=== PATIENT | male | born 1955 | race African-American/Black ===

== ENCOUNTER 2022-02-05 10:28 | Outpatient (REF) | payer MEDICARE, OTHER, SELFPAY ==
[2022-02-05 11:11] LABS: MANUAL DIFF FLAG NO
[2022-02-05 11:26] LABS: Basophils Absolute Auto 0.1 X10*3/uL (0.0-0.2); Basophils Percent Auto 1.1 % (0-2); Eosinophils Absolute Auto 0.3 X10*3/uL (0.0-0.4); Eosinophils Percent Auto 5.5 % (0-4); Hematocrit 38.5 % (42.0-52.0); Hemoglobin 12.3 g/dl (14.0-18.0); Imm Gran Abs Auto 0.01 X10*3/uL (0.00-0.03); Imm Gran Pct Auto 0.2 % (0.0-0.4); Lymphocytes Absolute Auto 1.3 X10*3/uL (1.2-4.9); Lymphocytes Percent Auto 28.3 % (20-40); Mean Corpuscular HGB Conc 31.9 g/dl (31.0-36.0); Mean Corpuscular Hemoglobin 23.3 pg (27.0-33.0); Mean Corpuscular Volume 73.1 fL (80.0-98.0); Mean Platelet Volume 11.4 fL (9.4-12.4); Monocytes Absolute Auto 0.6 X10*3/uL (0.1-1.2); Monocytes Percent Auto 12.5 % (2-11); Neutrophils Absolute Auto 2.5 x10*3/uL (2.0-8.3); Neutrophils Percent Auto 52.4 % (45-73); Platelet Count 234 X10*3/uL (160-400); Red Blood Count 5.27 X10*6/uL (4.60-5.80); White Blood Count 4.7 X10*3/uL (4.8-10.8)
[2022-02-05 12:38] LABS: Alanine Aminotransferase 40 U/L (0-40); Alkaline Phosphatase 94 U/L (39-117); Anion Gap 12 (12-20); Aspartate Amino Transferase 38 U/L (5-37); Bilirubin Total 0.9 mg/dL (0.0-1.0); Blood Urea Nitrogen 16 mg/dL (9-16); Calcium 9.5 mg/dL (8.4-10.2); Carbon Dioxide 27 mmol/L (22-29); Chloride 105 mmol/L (96-108); Cholesterol 207 mg/dL; Estimated Glomerular Filt Rate > 60; Glucose Fasting 80 mg/dL (60-99); HDL Cholesterol 58 mg/dL; LDL Cholesterol Calculated 114 mg/dl; Potassium 4.2 mmol/L (3.3-5.1); Sodium 140 mmol/L (135-145); Total Protein 7.4 g/dL (6.5-8.0); Triglycerides 178 mg/dL; Vitamin D 25-OH Total 16.3 ng/mL (>30)
[2022-02-05 13:57] LABS: Appearance Urine Clear; Color Urine Yellow; Glucose Urine UA Negative (Negative); Leukocyte Esterase Urine Small (1+) (Negative); Nitrite Urine Positive (Negative); PH 5.5 (5.0-9.0); Specific Gravity - Urine 1.015 (1.005-1.025); UMIC TRIGGER UACC YES; Urine Blood Negative (Negative); Urine Ketones Negative (Negative); Urine Protein Negative (Neg-Trace)
[2022-02-05 14:02] LABS: Bacteria Urine 4+ (None Seen); Hyaline Casts Urine 0-2 /LPF (0-2); RBC Urine 0-2 /HPF (0-2); Squamous Epithelial Cell Urine 0-2 /HPF (0-2); UACC Culture Trigger YES; WBC Urine 21-50 /HPF (0-5)
== END 2022-02-05 10:29 | disposition home or self-care (01) ==
LOC: HO.HMGCLDS 10:28
PROVIDERS: PCP Internal Medicine; Visit Provider Internal Medicine
DX: I10 Essential (primary) hypertension (principal); E78.00 Pure hypercholesterolemia, unspecified; E55.9 Vitamin D deficiency, unspecified
CPT/HCPCS: 36415; 80053; 80061; 81001; 82306; 84443; 85025; 87086; 87088; 87186

== ENCOUNTER 2022-02-07 12:14 | Outpatient (REF) | payer MEDICARE, OTHER, SELFPAY ==
[2022-02-07 15:04] LABS: PSA,Total (Free>4and<10) 11.71 ng/mL (0.00-4.00)
== END 2022-02-07 12:15 | disposition home or self-care (01) ==
LOC: HO.LAB 12:14
PROVIDERS: PCP Internal Medicine; Visit Provider Nurse Practitioner Family
DX: Z12.5 Encounter for screening for malignant neoplasm of prostate (principal)
CPT/HCPCS: 36415; 84153

== ENCOUNTER → 2022-03-13 13:04 | Outpatient (BNVA) | payer MEDICARE, OTHER, SELFPAY | PROVIDERS: PCP Internal Medicine; Visit Provider Urology | DX: N40.1 Benign prostatic hyperplasia with lower urinary tract symptoms (principal); N13.8 Other obstructive and reflux uropathy; R97.20 Elevated prostate specific antigen [PSA]; R35.0 Frequency of micturition; I10 Essential (primary) hypertension; E78.00 Pure hypercholesterolemia, unspecified; E55.9 Vitamin D deficiency, unspecified | CPT/HCPCS: 99202 ==

== ENCOUNTER 2022-09-01 09:06 | Outpatient (AMB) | payer MEDICARE, OTHER, SELFPAY ==
[2022-09-01 09:14] VITALS: BP 122/80; PULSE 82; O2SAT 96; BMI 23.1
--- NOTE | 2022-09-01 09:14 | A.OFFPC_ITS ---
Vital Signs 09/01/22 09:14 Height 5 ft 11 in Weight 165 lb 6 oz BMI 23.1 BP 122/80 Blood Pressure Location Lt brachial Position Sitting Pulse 82 Pulse Source Pulse Oximeter Pulse Oximetry (%) 96 Oxygen Delivery Method Room Air Intake Visit Reasons: 6M follow up Refractory Repairer Required: No Accompanied by: Self / Same As Patient Allergies No Known Allergies Allergy (Verified 09/01/22 09:50) Medication List - Last Reconciled 09/01/22 by Teddy Aguila MD No Known Home Meds Tobacco use date assessed: 09/01/22 Fall risk assessment: No Falls in past year Last assessed Fall Risk: 09/01/22 Dental Screening Dental Screen Date: 09/01/22 Did you have a dental visit in the last 12 months?: No Did you have a dental problem in the last 6 months where you did not have access to dental care?: No Was dental information given to patient?: No HPI 6M follow up HPI Details Patient comes in today for his follow up visit States that he feels okay Still has on and off left knee pain and currently has a knee brace on his left knee, which he states help but he thinks this is more psychological than physical Has been following up with [facility] for his left knee OA and gets a cortisone injection into his knee every 3 to 4 months; has been advised that it is only a matter of time before he will require knee surgery Patient used to take Atorvastatin 20 mg QD as well as Vitamin D supplements and Doxazosin and Finasteride for his BPH but states that he has not been taking them for a while now Stopped taking his prostate Rx a few months ago as he states that Dr. Chu's office was supposed to call him back and schedule him for a prostate Bx but he never received any calls from them; would like to be referred instead to Urology in [facility] for his prostate issues as his is a patient over there as well Adds that he stopped taking his Atorvastatin a couple of years ago and he was not on his Rx when he last had his cholesterol levels checked back in January He denies any headaches or dizziness Denies any chest pains, no SOB No nausea/vomiting, no abdominal pain No change in bowel habits noted Has no follow up labs done recently [facility], [facility] Medical History Benign essential hypertension Benign prostatic hyperplasia with lower urinary tract symptoms Elevated PSA, between 10 and less than 20 ng/ml Pure hypercholesterolemia Vitamin D deficiency Surgical History History of hernia repair (~2002) Family History Sister Diabetes mellitus Social History Housing: House Alcohol intake: current e-Cigarette/Vaping Use: Never Used service: Yes Current occupational status: retired Cognitive needs: No Hearing needs: No Vision needs: No Questionnaire PHQ-9 Over the last 2 weeks, how often have you been bothered by any of the following problems? 1. Little interest or pleasure in doing things: not at all 2. Feeling down, depressed, or hopeless: not at all 3. Trouble falling or staying asleep, or sleeping too much: not at all 4. Feeling tired or having little energy: not at all 5. Poor appetite or overeating: not at all 6. Feeling bad about yourself - or that you are a failure or have let yourself or your family down: not at all 7. Trouble concentrating on things, such as reading the newspaper or watching television: not at all 8. Moving or speaking so slowly that other people could have noticed. Or the opposite - being so fidgety or restless that you have been moving around a lot more than usual: not at all 9. Thoughts that you would be better off or of hurting yourself in some way: not at all Total score: 0 Depression Screening Interpretation: Negative 23385 - PHQ-9 Billing: Yes Source: Developed by Drs. Eulogio Barros, Zelda Zavala, Macario Villeda and colleagues, with an educational valorie from [employer]. Thrive Questionnaire Date Thrive assessed: 09/01/22 I am a: Patient What is your living situation today?: I have a steady place to live Within the past 12 months, did the food you bought not last and you didn't have the money to get more?: Never true Within the past 12 months, did you worry whether your food would run out before you got money to buy more?: Never true Do you have trouble paying for medicines?: No Do you have trouble getting transportation to medical appointments?: No Do you have trouble paying your heating and electricity bill?: No Do you have trouble taking care of your child, family member or friend?: No Do you have trouble with day-to-day activities such as bathing, preparing meals, shopping, managing finances, etc.?: No Are you currently unemployed and looking for a job?: No Are you interested in more education?: No Please select the resources that you would like help with: None Currently or been in a relationship where the following occur: no concerns reported AUDIT C Alcohol Use Questionnaire (AUDIT-C) 1. How often do you have a drink containing alcohol?: 4 or more times a week 2. How many drinks containing alcohol do you have on a typical day when you are drinking?: 10 or more Total Score: 8 Score Reviewed/Action Taken: Yes EVENS-7 AMB Questionnaire EVENS-7 Date EVENS - 7 assessed: 09/01/22 Feeling nervous, anxious, or on edge: 0 = Not at all Not being able to stop or control worryin = Not at all Worrying too much about different things: 0 = Not at all Trouble relaxin = Not at all Being so restless that it is hard to sit still: 0 = Not at all Becoming easily annoyed or irritable: 0 = Not at all Feeling afraid as if something awful might happen: 0 = Not at all Total EVENS-7 score (0-4 normal; 5-9 mild; 10-14 moderate; 15-21 severe): 0 Source: Developed by Drs. Eulogio Barros, Zelda Zavala, Macario Villeda and colleagues, with an educational valorie from [employer]. Review of Systems Const Denies chills, Denies fatigue, Denies fever(s) and Denies headache(s) ENT Denies dysphagia, Denies dizziness, Denies otalgia, Denies headache(s), Denies odynophagia and Denies sore throat Card Denies chest pain, Denies palpitations and Denies dyspnea Resp Denies cough and Denies dyspnea GI Denies abdominal pain, Denies constipation, Denies dysphagia, Denies heartburn, Denies diarrhea, Denies nausea, Denies odynophagia and Denies vomiting Denies dysuria, Reports nocturia and Denies urinary frequency Musc Reports arthralgias (recurrent, over the left knee) Neuro Denies dizziness and Denies headache(s) Endo Denies fatigue and Denies palpitations Physical exam (Primary Care) Vital Signs: Last Vital Signs Pulse 82 09/01/22 09:14 BP 122/80 09/01/22 09:14 Pulse Ox 96 09/01/22 09:14 Oxygen Delivery Method Room Air 09/01/22 09:14 BMI result Body Mass Index 23.1 Tobacco/Smoking Status: Tobacco use Status Tobacco use date assessed 09/01/22 09/01/22 09:19 e-Cigarette/Vaping Use Never Used 09/01/22 09:19 PHQ-9: PHQ-9 Score PHQ-9: Total score 0 09/01/22 09:19 Depression Screening Interpretation: Negative Thrive Assessment: Date of Thrive Assessment Date Thrive assessed 09/01/22 09/01/22 09:19 Currently or been in a relationship where the following occur: no concerns reported Const General: no acute distress and alert HENMT Ears: TM's normal bilaterally and EAC's normal Throat: Yes posterior oropharynx normal and Yes tonsils normal (no TP congestion) Neck Neck: Yes no lymphadenopathy and Yes supple Resp Auscultation: clear to auscultation bilaterally, no rales and no wheezes Cardio Rate: regular rate Rhythm: regular rhythm Heart sounds: no murmurs GI Palpation (GI): Soft to palpation, nontender and No hepatosplenomegaly present Skin General skin exam: no rashes or lesions noted Extrem General: Yes no clubbing, cyanosis or edema Left lower extremity: knee (has a brace on the left knee at present) Details: tenderness (mild) and crepitus Assessment and Plan Assessment & Plan (1) Chronic anemia: Code(s): D64.9 - Anemia, unspecified Plan: ?Hx of thalassemia trait Patient has consistently presented with mild microcytic hypochromic anemia on his CBCs done over the past few years - numbers are suggestive of a thalassemia trait Will check Hgb electrophoresis with his labs in 6 months for further evaluation/confirmation Will also include a vitamin B12 level for further evaluation due to his frequent alcohol use (2) Pure hypercholesterolemia: Code(s): E78.00 - Pure hypercholesterolemia, unspecified Plan: Reinforced low cholesterol diet Was on Atorvastatin 20 mg QD in the past but states that he has not been taking his Rx for over 2 years now His fasting lipid profile last check in January 2022 were within acceptable ranges - he was NOT on Rx for cholesterol at the time Will recheck his labs and fasting lipids in 6 months for follow up (3) Benign essential hypertension: Code(s): I10 - Essential (primary) hypertension Plan: Reinforced low sodium diet Used to take HCTZ 25 mg QD in the past but self-discontinued this a few years ago BP has been well-controlled so far on no meds for the past couple of years Will continue to monitor his BP regularly for now (4) Benign prostatic hyperplasia with lower urinary tract symptoms: Code(s): N40.1 - Benign prostatic hyperplasia with lower urinary tract symptoms Qualifiers: Lower urinary tract symptom detail: urinary frequency Qualified Code(s): N40.1 - Benign prostatic hyperplasia with lower urinary tract symptoms; R35.0 - Frequency of micturition Plan: Used to see Dr. Chu and was started on Doxazosin and Finasteride and advised that he will be contacted for prostate Bx but states that he never received any call back Self-discontinued his Rx a few months ago when his Rx ran out - did not refill them as he was never contacted back Is requesting for a referral to urology in [place] instead as his goes there as a patient - referral done (5) Vitamin D deficiency: Code(s): E55.9 - Vitamin D deficiency, unspecified Plan: Used to take Vitamin D supplements but stopped taking them a while ago Will recheck his Vitamin D level in 6 months for follow up (6) Primary osteoarthritis of left knee: Code(s): M17.12 - Unilateral primary osteoarthritis, left knee Plan: Follow up with [facility] as scheduled; gets cortisone injections into his knee every 3 to 4 months as needed (7) Alcohol use: Code(s): Z78.9 - Other specified health status Plan: Have counseled patient on his alcohol use and recommended to cut back on his drinking Plan Follow up in 6 months Orders: Orders Comprehensive [place]. Panel Fast 6 Months E78.00 - Pure hypercholesterolemia, unspecified Lipid Panel 6 Months E78.00 - Pure hypercholesterolemia, unspecified TSH reflex Free T4 6 Months E78.00 - Pure hypercholesterolemia, unspecified Vitamin D 25-OH Total 6 Months E55.9 - Vitamin D deficiency, unspecified Complete Blood Count Auto Diff 6 Months I10 - Essential (primary) hypertension Hemoglobin Electrophoresis 6 Months D64.9 - Anemia, unspecified UA CC w/rflx Micro + Cult 6 Months R30.0 - Dysuria Vitamin B12 and Folate 6 Months E53.8 - Deficiency of other specified B group vitamins Magnesium 6 Months E83.42 - Hypomagnesemia Referrals Urology Referral R97.20 - Elevated prostate specific antigen [PSA] Coding Level of Care Code Est Pt Level 4 (85068) Diagnoses Chronic anemia D64.9 Pure hypercholesterolemia E78.00 Benign essential hypertension I10 Benign prostatic hyperplasia with lower urinary tract symptoms N40.1; R35.0 Lower urinary tract symptom detail: urinary frequency Vitamin D deficiency E55.9 Primary osteoarthritis of left knee M17.12 Alcohol use Z78.9
== END 2022-09-01 09:51 | disposition home or self-care (01) ==
PROVIDERS: PCP Internal Medicine; Visit Provider Internal Medicine
DX: D64.9 Anemia, unspecified (principal); I10 Essential (primary) hypertension; E55.9 Vitamin D deficiency, unspecified; E78.00 Pure hypercholesterolemia, unspecified; R35.0 Frequency of micturition; N40.1 Benign prostatic hyperplasia with lower urinary tract symptoms; M17.12 Unilateral primary osteoarthritis, left knee; Z78.9 Other specified health status
CPT/HCPCS: 99214

== ENCOUNTER 2023-03-19 08:16 | Outpatient (REF) | payer MEDICARE, OTHER, SELFPAY ==
[2023-03-19 08:45] LABS: MANUAL DIFF FLAG NO
[2023-03-19 09:09] LABS: Basophils Absolute Auto 0.1 X10*3/uL (0.0-0.2); Basophils Percent Auto 1.4 % (0-2); Eosinophils Absolute Auto 0.3 X10*3/uL (0.0-0.4); Eosinophils Percent Auto 8.1 % (0-4); Hematocrit 37.7 % (42.0-52.0); Hemoglobin 12.1 g/dl (14.0-18.0); Lymphocytes Percent Auto 28.8 % (20-40); Mean Corpuscular HGB Conc 32.1 g/dl (31.0-36.0); Mean Corpuscular Volume 71.5 fL (80.0-98.0); Mean Platelet Volume 10.9 fL (9.4-12.4); Monocytes Absolute Auto 0.5 X10*3/uL (0.1-1.2); Monocytes Percent Auto 14.2 % (2-11); Neutrophils Absolute Auto 1.7 x10*3/uL (2.0-8.3); Neutrophils Percent Auto 47.5 % (45-73); Platelet Count 178 X10*3/uL (160-400); Red Blood Count 5.27 X10*6/uL (4.60-5.80); Red Cell Distribution Width 16.1 % (11.0-16.0); White Blood Count 3.6 X10*3/uL (4.8-10.8)
[2023-03-19 09:47] LABS: Alanine Aminotransferase 23 U/L (0-40); Albumin Level 3.6 g/dL (3.5-5.0); Alkaline Phosphatase 89 U/L (39-117); Anion Gap 14 (12-20); Aspartate Amino Transferase 30 U/L (5-37); Bilirubin Total 0.7 mg/dL (0.0-1.0); Blood Urea Nitrogen 17 mg/dL (9-16); Calcium 9.3 mg/dL (8.4-10.2); Carbon Dioxide 24 mmol/L (22-29); Chloride 104 mmol/L (96-108); Cholesterol 251 mg/dL (<200); Estimated Glomerular Filt Rate > 60; Glucose Fasting 81 mg/dL (60-99); HDL Cholesterol 44 mg/dL (>40); Magnesium 2.1 mg/dL (1.6-2.6); Potassium 3.9 mmol/L (3.3-5.1); Sodium 138 mmol/L (135-145); Total Protein 7.2 g/dL (6.5-8.0); Triglycerides 558 mg/dL (<150)
[2023-03-19 10:06] LABS: TSH reflex Free T4 1.19 uIU/mL (0.32-4.0); Vitamin D 25-OH Total 12.9 ng/mL (>30)
[2023-03-19 10:08] LABS: Folate 14.6 ng/mL (> or = 4.0); Vitamin B12 438 pg/mL (200-900)
[2023-03-19 10:55] LABS: Appearance Urine Cloudy; Color Urine Yellow; Glucose Urine UA Negative (Negative); Leukocyte Esterase Urine Moderate (2+) (Negative); Nitrite Urine Positive (Negative); PH 5.5 (5.0-9.0); Specific Gravity - Urine 1.015 (1.005-1.025); UMIC TRIGGER UACC YES; Urine Blood Negative (Negative); Urine Ketones Negative (Negative); Urine Protein Negative (Neg-Trace)
[2023-03-19 10:58] LABS: Bacteria Urine 4+ (None Seen); Hyaline Casts Urine 0-2 /LPF (0-2); RBC Urine 0-2 /HPF (0-2); Squamous Epithelial Cell Urine 0-2 /HPF (0-2); UACC Culture Trigger YES; WBC Urine >50 /HPF (0-5)
[2023-03-20 13:34] LABS: Hematocrit 38.7 % (38.5-50.0); Hemoglobin 12.1 g/dL (13.2-17.1); MCH 22.9 pg (27.0-33.0); MCV 73.3 fL (80.0-100.0); RBC 5.28 Million/uL (4.20-5.80); RDW 15.7 % (11.0-15.0)
== END 2023-03-19 08:17 | disposition home or self-care (01) ==
LOC: HO.LAB 08:16
PROVIDERS: PCP Internal Medicine; Visit Provider Internal Medicine
DX: D64.9 Anemia, unspecified (principal); I10 Essential (primary) hypertension; E78.00 Pure hypercholesterolemia, unspecified; E83.42 Hypomagnesemia; E53.8 Deficiency of other specified B group vitamins; E55.9 Vitamin D deficiency, unspecified
CPT/HCPCS: 36415; 80053; 80061; 81001; 82306; 82607; 82746; 83020; 83735; 84443; 85014; 85018; 85025; 85041; 87086; 87088; 87186

== ENCOUNTER 2023-03-20 12:22 | Outpatient (AMB) | payer MEDICARE, OTHER, SELFPAY ==
[2023-03-20 12:34] VITALS: BP 112/74; PULSE 101; O2SAT 97; BMI 23.2
--- NOTE | 2023-03-20 12:34 | AM.OFFVISMDC ---
Intake Vital Signs 03/20/23 12:34 Height 5 ft 11 in Weight 166 lb 8 oz BMI 23.2 BP 112/74 Blood Pressure Location Lt brachial Position Sitting Pulse 101 H Pulse Source Pulse Oximeter Pulse Oximetry (%) 97 Oxygen Delivery Method Room Air Intake Visit Reasons: SAWV Bottom Sprayer Required: No Accompanied by: Self / Same As Patient Allergies No Known Allergies Allergy (Verified 03/20/23 12:59) Medication List - Last Reconciled 03/20/23 by Teddy Aguila MD doxazosin 12 mg (3 x 4 mg) PO BEDTIME 90 days HPI SAWV HPI Details Patient comes in today for his Annual Medicare Wellness Exam AND follow up visit States that he feels okay He denies any headaches or dizziness Denies any chest pains, no SOB No nausea/vomiting, no abdominal pain No change in bowel habits noted Had his follow up labs done yesterday - to discuss his results IPPE/AWV: c/o of Annual Wellness Visit, subsequent visit. Medical / Social History Reviewed Past Medical History Yes . [place] of Care / Care Team list updated Yes . Surgical/Hospitalization History Yes . Current Medications (including OTC and supplements) Yes . Family History Yes . Tobacco Control form Yes . AUDIT-C (Alcohol use) form Yes . Illicit drug use in Social History Yes . Current diagnosis of depression? No Appropriate PHQ2/PHQ9 completed Yes . Data entered by [employer] Super[employer] and reviewed by provider Home Safety Throw rugs? No Grab bars? No Raised toilet seats? No Working smoke detectors? Yes Working carbon monoxide detectors? Yes Data entered by [employer] and reviewed by provider Activities of Daily Living (ADLs) Difficulty bathing or showering? No Difficulty dressing? No Difficulty using the toilet? No Difficulty getting in and out of bed? No Difficulty walking? No Receives help from another person with any of the above tasks? No Instrumental Activities of Daily Living (IADLs) Uses the telephone without help Gets to places out of walking distance without help Goes shopping for groceries without help Prepares own meals without help Does own minor home maintenance without help Does own laundry without help Does own housework without help Manages own money without help Currently takes medications? Yes Takes medication without help End-of-Life Planning Discussed advance directive Yes Advance directive on file Discussed wishes expressed in advance directive agreed to following patient's wishes Fall Risk: Fall History Have you had any falls with injury in the past year? No . Have you had two or more falls in the past year? No . Fall Risk Assessment: No falls in the past year . HRA filled out by the patient, reviewed by Provider and scanned. [facility] Medical History (Updated 03/20/23 @ 13:26 by Teddy Aguila MD) Mixed hyperlipidemia Elevated PSA, between 10 and less than 20 ng/ml Vitamin D deficiency Benign prostatic hyperplasia with lower urinary tract symptoms Pure hypercholesterolemia Benign essential hypertension Surgical History (Updated 03/20/23 @ 13:29 by Teddy Aguila MD) Hx of colonoscopy History of hernia repair (~2002) Family History Sister Diabetes mellitus Social History Housing: House Alcohol intake: current e-Cigarette/Vaping Use: Never Used service: Yes Current occupational status: retired Cognitive needs: No Hearing needs: No Vision needs: No Questionnaire Medicare Wellness Checkup [age] What gender do you identify with?: male During the past 4 weeks, how much have you been bothered by emotional problems such as feeling anxious, depressed, irritable, sad or downhearted, and blue?: not at all During the past 4 weeks, has your physical & emotional health limited your social activities with family, friends, neighbors, or groups?: not at all During the past 4 weeks, how much bodily pain have you generally had?: no pain During the past 4 weeks, was someone available to help you if you needed & wanted help?: yes, as much as I wanted During the past 4 weeks, what was the hardest physical activity you could do for at least 2 minutes?: heavy Can you get to places out of walking distance without help? (For eg., can you travel alone on buses, taxis or drive your car?): Yes Can you go shopping for groceries or clothes without someone's help?: Yes Can you prepare your own meals?: Yes Can you do your housework without help?: Yes Because of any health problems, do you need the help of another person with your personal care needs such as eating, bathing, dressing or getting around the house?: No Can you handle your own money without help?: Yes During the past 4 weeks, how would you rate your health in general?: very good During the past 4 weeks how have things been going for you?: very well; could hardly better Are you having difficulties driving your car?: no Do you always fasten your seat belt when you are in a car?: yes, usually During past 4 weeks, have you been bothered by the following: never: Falling or dizzy when standing up, Sexual problems?, Trouble eating well?, Teeth or denture problems?, Problems using the telephone? and Tiredness or fatigue? Have you fallen 2 or more times in the past year?: No Are you afraid of falling?: No Are you a smoker?: no During the past 4 weeks, how many drinks of wine, beer, or other alcoholic beverages did you have?: 10 or more per week Do you exercise for about 20 minutes 3 or more times a week?: no, I usually do not exercise this much Have you been given information to help with the following?: no: Hazards in your house that might hurt you? and no: Keeping track of your medications? How often do you have trouble taking medicines the way you have been told to take them?: I always take medicine as prescribed How confident are you that you can control & manage most of your health problems?: very confident What is your race?: Black or Mini Mental State Exam (MMSE) Orientation What is the (year) (season) (date) (day) (month)?: year, season, date, day and month Where are we (state) (county) (town or city) (hospital) (floor)?: state, county, town or city, hospital/clinic and floor Score Score: 10 Activity of Daily Living Bathing - sponge bath, tub bath or shower: receives no assistance (gets in/out by self, if usual bathing means Dressing - getting clothes from closets & drawers, including inner/outer garments & fasteners.: gets clothes & gets completely dressed without help Toileting - going to the 'toilet room' for urine/bowel elimination & cleaning self/arranging clothes: goes to toilet room, cleans self, arranges clothes without help Transfer: moves in & out of bed and chair without help (may use support object) Continence: controls urination/bowel movements completely by self Feeding: feeds self without help Total Score: 0 Information obtained from: patient Using telephone: independent Traveling: independent Shopping: independent Preparing meals: independent Housework: independent Taking medicine: independent Managing money: independent PHQ-9 Over the last 2 weeks, how often have you been bothered by any of the following problems? 1. Little interest or pleasure in doing things: not at all 2. Feeling down, depressed, or hopeless: not at all 3. Trouble falling or staying asleep, or sleeping too much: not at all 4. Feeling tired or having little energy: not at all 5. Poor appetite or overeating: not at all 6. Feeling bad about yourself - or that you are a failure or have let yourself or your family down: not at all 7. Trouble concentrating on things, such as reading the newspaper or watching television: not at all 8. Moving or speaking so slowly that other people could have noticed. Or the opposite - being so fidgety or restless that you have been moving around a lot more than usual: not at all 9. Thoughts that you would be better off or of hurting yourself in some way: not at all Total score: 0 Depression Screening Interpretation: Negative Depression Screening Done: Yes 50337 - PHQ-9 Billing: Yes Source: Developed by Drs. Eulogio Barros, Zelda Zavala, Macario Villeda and colleagues, with an educational valorie from [employer]. PHQ-2/PHQ-9 PHQ-2 Over the last 2 weeks, how often have you been bothered by any of the following problems? 1. Little interest or pleasure in doing things: not at all 2. Feeling down, depressed, or hopeless: not at all Total score: 0 If score is 3 or greater, continue 3. Trouble falling or staying asleep, or sleeping too much: not at all 4. Feeling tired or having little energy: not at all 5. Poor appetite or overeating: not at all 6. Feeling bad about yourself - or that you are a failure or have let yourself or your family down: not at all 7. Trouble concentrating on things, such as reading the newspaper or watching television: not at all 8. Moving or speaking so slowly that other people could have noticed. Or the opposite - being so fidgety or restless that you have been moving around a lot more than usual: not at all 9. Thoughts that you would be better off or of hurting yourself in some way: not at all Total score: 0 0-4 None-Minimal, 5-9 Mild, 10-14 Moderate, 15-19 Moderately Severe, 20-27 Severe Source: Developed by Drs. Eulogio Barros, Zelda Zavala, Macario Villeda and colleagues, with an educational valorie from [employer]. Thrive Questionnaire Date Thrive assessed: 03/20/23 I am a: Patient What is your living situation today?: I have a steady place to live Within the past 12 months, did the food you bought not last and you didn't have the money to get more?: Never true Within the past 12 months, did you worry whether your food would run out before you got money to buy more?: Never true Do you have trouble paying for medicines?: No Do you have trouble getting transportation to medical appointments?: No Do you have trouble paying your heating and electricity bill?: No Do you have trouble taking care of your child, family member or friend?: No Do you have trouble with day-to-day activities such as bathing, preparing meals, shopping, managing finances, etc.?: No Are you currently unemployed and looking for a job?: No Are you interested in more education?: No Please select the resources that you would like help with: None Currently or been in a relationship where the following occur: no concerns reported THRIVE Score: 0 EVENS-7 AMB Questionnaire EVENS-7 Date EVENS - 7 assessed: 03/20/23 Feeling nervous, anxious, or on edge: 0 = Not at all Not being able to stop or control worryin = Not at all Worrying too much about different things: 0 = Not at all Trouble relaxin = Not at all Being so restless that it is hard to sit still: 0 = Not at all Becoming easily annoyed or irritable: 0 = Not at all Feeling afraid as if something awful might happen: 0 = Not at all Total EVENS-7 score (0-4 normal; 5-9 mild; 10-14 moderate; 15-21 severe): 0 Source: Developed by Drs. Eulogio Barros, Zelda Zavala, Macario Villeda and colleagues, with an educational valorie from [employer]. Review of Systems Const Denies fatigue, Denies fever(s) and Denies headache(s) ENT Denies dysphagia, Denies dizziness, Denies otalgia, Denies headache(s), Denies odynophagia and Denies sore throat Card Denies chest pain, Denies palpitations and Denies dyspnea Resp Denies cough, Denies dyspnea and Denies wheezing GI Denies abdominal pain, Denies constipation, Denies dysphagia, Denies heartburn, Denies diarrhea, Denies nausea, Denies odynophagia and Denies vomiting Denies dysuria, Reports nocturia and Denies urinary frequency Musc Denies back pain and Reports arthralgias (recurrent, over the left knee) Skin/Breast Denies rash Neuro Denies dizziness and Denies headache(s) Endo Denies fatigue and Denies palpitations Aller/Immun Denies wheezing Physical Exam Vital Signs: Last Vital Signs Pulse 101 H 03/20/23 12:34 BP 112/74 03/20/23 12:34 Pulse Ox 97 03/20/23 12:34 Oxygen Delivery Method Room Air 03/20/23 12:34 BMI result Body Mass Index 23.2 IPPE/AWV: Balance [place]berg Yes . Tandem walk Yes . Walk and Turn Yes . Rise from sit to stand Yes . Vision Corrective lens No Vision screen pass Hearing Whisper test pass . Urinary incont. no. EKG Not clinically necessary. Const General: no acute distress and alert Orientation/consciousness: patient oriented x3 HEENT Ears: TM's normal bilaterally and EAC's normal Throat: Yes posterior oropharynx normal and Yes tonsils normal (no TP congestion) Neck Neck: Yes no lymphadenopathy and Yes supple Resp Auscultation: clear to auscultation bilaterally, no rales and no wheezes Cardio Rate: regular rate Rhythm: regular rhythm Heart sounds: no murmurs GI Palpation (GI): Soft to palpation and nontender Auscultation: normal bowel sounds General: Yes no CVA tenderness Back/Spine/Pelvis Back: no CVA tenderness Thoracic/Lumbar Spine: No lumbar spinal tenderness Skin Rashes: no rashes Neuro General: patient oriented x3 Cognition (Neuro): normal cognition Extrem General: Yes no clubbing, cyanosis or edema Psych Thought process: Normal thought process present Results Reviewed Results Reviewed: Laboratory Tests 04/08/18 02/05/22 03/19/23 00:00 10:39 08:37 WBC Hgb Hct MCV MCH RDW Plt Count Sodium Potassium Creatinine Estimated GFR Fasting Glucose Calcium Magnesium AST ALT Triglycerides 178 Cholesterol 207 LDL Cholesterol, Calc 114 HDL Cholesterol 58 Vitamin B12 25-OH Vitamin D Total TSH Ur Specific [place] Urine Protein Urine Glucose (UA) Negative Urine Blood Negative Urine Nitrite Positive H Urine WBC (Auto) 1+ H 03/19/23 03/19/23 03/19/23 08:37 08:40 08:40 WBC 3.6 L Hgb 12.1 L Hct 37.7 L MCV 71.5 L MCH 23.0 L RDW 16.1 H Plt Count 178 Sodium 138 Potassium 3.9 Creatinine 0.90 Estimated GFR > 60 Fasting Glucose 81 Calcium 9.3 Magnesium 2.1 AST 30 ALT 23 Triglycerides 558 H Cholesterol 251 H LDL Cholesterol, Calc TNP HDL Cholesterol 44 Vitamin B12 438 25-OH Vitamin D Total 12.9 L TSH 1.19 Ur Specific [place] 1.015 Urine Protein Negative Urine Glucose (UA) Urine Blood Urine Nitrite Urine WBC (Auto) Assessment & Plan Assessment & Plan (1) Medicare annual wellness visit, subsequent: Code(s): Z00.00 - Encounter for general adult medical examination without abnormal findings Plan: HRA form discussed and completed with patient; form will be scanned into patient's chart He last had his screening colonoscopy done in 2014 at [facility]; recommended to get this repeated in 10 years (2024) (2) Mixed hyperlipidemia: Code(s): E78.2 - Mixed hyperlipidemia Plan: Results of his labs done yesterday reviewed and discussed with patient - he is advised that his serum triglyceride level has increased significantly and is now at 558 mg/dl; total cholesterol has also gone up to 251 mg/dl Admits that he has not been compliant with his diet - reinforced low cholesterol diet He was on Atorvastatin 20 mg QD in the past but states that he has not been taking his Rx for over 2 years now Will start him for now on Fenofibrate 120 mg QD Will have him recheck his labs and fasting lipids in 4 months for follow up (3) Elevated PSA: Code(s): R97.20 - Elevated prostate specific antigen [PSA] Plan: Patient used to see Dr. Chu and was started on Doxazosin and Finasteride and advised that he will be contacted for prostate Bx but states that he never received any call back He self-discontinued his Rx a few months ago when his Rx ran out - did not refill them as he was never contacted back He has requested to be referred to another urology practice - referral to [facility]rology done (4) Chronic anemia: Code(s): D64.9 - Anemia, unspecified Plan: ?Hx of thalassemia trait Patient has consistently presented with mild microcytic hypochromic anemia on his CBCs done over the past few years - numbers are suggestive of a thalassemia trait Hgb electrophoresis was checked with his labs yesterday - results are still pending Will start him for now on oral iron supplement - Feosol 65 mg QD His B12 level done yesterday came out normal (5) Benign essential hypertension: Code(s): I10 - Essential (primary) hypertension Plan: Reinforced low sodium diet Used to take HCTZ 25 mg QD in the past but he self-discontinued this a few years ago His BP has been well-controlled so far on NO meds for the past couple of years Will continue to monitor his BP regularly for now (6) Primary osteoarthritis of left knee: Code(s): M17.12 - Unilateral primary osteoarthritis, left knee Plan: Follow up with [facility] as scheduled; gets cortisone injections into his knee every 3 to 4 months as needed (7) Vitamin D deficiency: Code(s): E55.9 - Vitamin D deficiency, unspecified Plan: He is advised that his Vitamin D level was also low Will start him on Vitamin D3 2000 units QD Plan Follow up in 4 months Orders: Orders Lipid Panel 4 Months E78.00 - Pure hypercholesterolemia, unspecified Comprehensive [place]. Panel Fast 4 Months E78.00 - Pure hypercholesterolemia, unspecified Complete Blood Count Auto Diff 4 Months D64.9 - Anemia, unspecified IRON PROFILE 4 Months D50.9 - Iron deficiency anemia, unspecified Vitamin B12 and Folate 4 Months E53.8 - Deficiency of other specified B group vitamins Vitamin D 25-OH Total 4 Months E55.9 - Vitamin D deficiency, unspecified Referrals Urology Referral R97.20 - Elevated prostate specific antigen [PSA] Medications: New ferrous sulfate (Feosol) 325 mg PO DAILY 90 days 90 tabs 1RF cholecalciferol (vitamin D3) 50 mcg PO DAILY 90 days 90 caps 3RF E55.9 - Vitamin D deficiency, unspecified fenofibrate 120 mg PO DAILY 90 days 90 tabs 1RF E78.2 - Mixed hyperlipidemia Quality Reporting (2019) Depression/Bipolar (159/160/161/177) PHQ-9: Total score: 0 Coding Level of Care Code Medicare Subsequent (G0439) Est Pt Level 4 (66482) Diagnoses Medicare annual wellness visit, subsequent Z00.00 Mixed hyperlipidemia E78.2 Elevated PSA R97.20 Chronic anemia D64.9 Benign essential hypertension I10 Primary osteoarthritis of left knee M17.12 Vitamin D deficiency E55.9
== END 2023-03-20 13:22 | disposition home or self-care (01) ==
PROVIDERS: PCP Internal Medicine; Visit Provider Internal Medicine
DX: Z00.00 Encounter for general adult medical examination without abnormal findings (principal); E78.2 Mixed hyperlipidemia; R97.20 Elevated prostate specific antigen [PSA]; D64.9 Anemia, unspecified; I10 Essential (primary) hypertension; M17.12 Unilateral primary osteoarthritis, left knee; E55.9 Vitamin D deficiency, unspecified
CPT/HCPCS: 99214; G0439

== ENCOUNTER 2023-07-23 10:29 | Outpatient (AMB) | payer MEDICARE, OTHER, SELFPAY ==
[2023-07-23 10:38] VITALS: BP 132/80; PULSE 84; O2SAT 97; BMI 23.0
--- NOTE | 2023-07-23 10:38 | MHC.PC.OV ---
Vital Signs 07/23/23 10:38 Height 5 ft 11 in Weight 165 lb BMI 23.0 BP 132/80 Blood Pressure Location Lt brachial Position Sitting Pulse 84 Pulse Source Pulse Oximeter Pulse Oximetry (%) 97 Oxygen Delivery Method Room Air Intake Visit Reasons: 4 month f/u Intake Note: Patient here for a 4 month follow up [facility] [employer] [facility] Required: No Accompanied by: Self / Same As Patient Allergies No Known Allergies Allergy (Verified 07/23/23 11:13) Medication List - Last Reconciled 07/23/23 by Teddy Aguila MD cholecalciferol (vitamin D3) 50 mcg PO DAILY 90 days doxazosin 12 mg (3 x 4 mg) PO BEDTIME 90 days fenofibrate micronized 134 mg PO DAILY ferrous sulfate (Feosol) 325 mg PO DAILY 90 days Tobacco use date assessed: 07/23/23 Fall risk assessment: No Falls in past year Last assessed Fall Risk: 07/23/23 Dental Screening Dental Screen Date: 07/23/23 Did you have a dental visit in the last 12 months?: No Did you have a dental problem in the last 6 months where you did not have access to dental care?: No Was dental information given to patient?: Patient has dentist HPI 4 month f/u HPI Details Patient comes in today for his follow up visit States that he feels okay He denies any headaches or dizziness Denies any chest pains, no SOB No nausea/vomiting, no abdominal pain No change in bowel habits noted He needs a couple of his Rx refilled He was not able to get his follow up labs done prior to his visit today [facility] Medical History (Updated 07/23/23 @ 15:14 by Teddy Aguila MD) Beta thalassemia trait Mixed hyperlipidemia Elevated PSA, between 10 and less than 20 ng/ml Vitamin D deficiency Benign prostatic hyperplasia with lower urinary tract symptoms Pure hypercholesterolemia Benign essential hypertension Surgical History Hx of colonoscopy History of hernia repair (~2002) Family History Sister Diabetes mellitus Social History Housing: House Alcohol intake: current Alcohol intake frequency: a few times a week Alcohol type: beer Patient Tobacco Use Status: Former Tobacco user Tobacco use type: Cigarette e-Cigarette/Vaping Use: Never Used Second Hand Smoke Exposure: No service: Yes Current occupational status: retired Cognitive needs: No Hearing needs: No Vision needs: No Questionnaire PHQ-9 Over the last 2 weeks, how often have you been bothered by any of the following problems? 1. Little interest or pleasure in doing things: not at all 2. Feeling down, depressed, or hopeless: not at all 3. Trouble falling or staying asleep, or sleeping too much: not at all 4. Feeling tired or having little energy: not at all 5. Poor appetite or overeating: not at all 6. Feeling bad about yourself - or that you are a failure or have let yourself or your family down: not at all 7. Trouble concentrating on things, such as reading the newspaper or watching television: not at all 8. Moving or speaking so slowly that other people could have noticed. Or the opposite - being so fidgety or restless that you have been moving around a lot more than usual: not at all 9. Thoughts that you would be better off or of hurting yourself in some way: not at all Total score: 0 Depression Screening Interpretation: Negative Depression Screening Done: Yes 13555 - PHQ-9 Billing: Yes Source: Developed by Drs. Eulogio Barros, Zelda Zavala, Macario Villeda and colleagues, with an educational valorie from [employer]. Thrive Questionnaire Date Thrive assessed: 07/23/23 I am a: Patient What is your living situation today?: I have a steady place to live Within the past 12 months, did the food you bought not last and you didn't have the money to get more?: Never true Within the past 12 months, did you worry whether your food would run out before you got money to buy more?: Never true Do you have trouble paying for medicines?: No Do you have trouble getting transportation to medical appointments?: No Do you have trouble paying your heating and electricity bill?: No Do you have trouble taking care of your child, family member or friend?: No Do you have trouble with day-to-day activities such as bathing, preparing meals, shopping, managing finances, etc.?: No Are you currently unemployed and looking for a job?: No Are you interested in more education?: No Please select the resources that you would like help with: None Currently or been in a relationship where the following occur: no concerns reported THRIVE Score: 0 AUDIT C Alcohol Use Questionnaire (AUDIT-C) 1. How often do you have a drink containing alcohol?: 4 or more times a week 2. How many drinks containing alcohol do you have on a typical day when you are drinking?: 10 or more 3. How often do you have six or more drinks on one occasion?: Weekly Total Score: 11 Score Reviewed/Action Taken: Yes EEVNS-7 AMB Questionnaire EVENS-7 Date EVENS - 7 assessed: 07/23/23 Feeling nervous, anxious, or on edge: 0 = Not at all Not being able to stop or control worryin = Not at all Worrying too much about different things: 0 = Not at all Trouble relaxin = Not at all Being so restless that it is hard to sit still: 0 = Not at all Becoming easily annoyed or irritable: 0 = Not at all Feeling afraid as if something awful might happen: 0 = Not at all Total EVENS-7 score (0-4 normal; 5-9 mild; 10-14 moderate; 15-21 severe): 0 Source: Developed by Drs. Eulogio Barros, Zelda Zavala, Macario Villeda and colleagues, with an educational valorie from [employer]. Review of Systems Const Denies chills, Denies fatigue, Denies fever(s) and Denies headache(s) ENT Denies dysphagia, Denies dizziness, Denies otalgia, Denies headache(s), Denies neck pain, Denies odynophagia and Denies sore throat Card Denies chest pain, Denies palpitations and Denies dyspnea Resp Denies cough, Denies dyspnea and Denies wheezing GI Denies abdominal pain, Denies constipation, Denies dysphagia, Denies heartburn, Denies diarrhea, Denies nausea, Denies odynophagia and Denies vomiting Denies dysuria, Reports nocturia and Denies urinary frequency Musc Denies back pain, Reports arthralgias (recurrent, over the left knee) and Denies neck pain Skin/Breast Denies rash Neuro Denies dizziness and Denies headache(s) Endo Denies fatigue and Denies palpitations Aller/Immun Denies wheezing Physical exam (Primary Care) Vital Signs: Last Vital Signs Pulse 84 07/23/23 10:38 BP 132/80 07/23/23 10:38 Pulse Ox 97 07/23/23 10:38 Oxygen Delivery Method Room Air 07/23/23 10:38 BMI result Body Mass Index 23.0 Tobacco/Smoking Status: Tobacco use Status Tobacco use date assessed 07/23/23 07/23/23 10:47 Patient Tobacco Use Status Former Tobacco user 07/23/23 10:47 Tobacco use type Cigarette 07/23/23 10:47 e-Cigarette/Vaping Use Never Used 07/23/23 10:47 PHQ-9: PHQ-9 Score PHQ-9: Total score 0 07/23/23 11:16 Depression Screening Interpretation: Negative Thrive Assessment: Date of Thrive Assessment Date Thrive assessed 07/23/23 07/23/23 10:47 Currently or been in a relationship where the following occur: no concerns reported Const General: no acute distress and alert HENMT Ears: TM's normal bilaterally and EAC's normal Throat: Yes posterior oropharynx normal and Yes tonsils normal (no TP congestion) Neck Neck: Yes no lymphadenopathy and Yes supple Thyroid: Thyroid normal Resp Auscultation: clear to auscultation bilaterally, no rales and no wheezes Cardio Rate: regular rate Rhythm: regular rhythm Heart sounds: no murmurs GI Palpation (GI): Soft to palpation and nontender Auscultation: normal bowel sounds General: Yes no CVA tenderness Back/Spine/Pelvis Back: no CVA tenderness Skin Rashes: no rashes Extrem General: Yes no clubbing, cyanosis or edema Left lower extremity: knee Details: tenderness (mild) and crepitus Assessment and Plan Assessment & Plan (1) Beta thalassemia trait: Code(s): D56.3 - Thalassemia minor Plan: Patient has consistently presented with mild microcytic hypochromic anemia on his CBCs done over the past few years and numbers raised suspicion of a thalassemia trait Hgb electrophoresis done back in March 2023 revealed findings consistent with a beta thalassemia trait His vitamin B12 level came back normal He will have his iron level checked for completion of his work up when he goes and gets his follow up labs done JAE As he is currently asymptomatic, no other intervention is necessary at this time (2) Pure hypercholesterolemia: Code(s): E78.00 - Pure hypercholesterolemia, unspecified Plan: He was not able to get his follow up labs done prior to his visit today - states that he will try to get them done JAE Reinforced low cholesterol diet He was on Atorvastatin 20 mg QD in the past but states that he has not been taking his Rx for the past 2 to 3 years now His fasting lipid profile last checked in March 2023 revealed elevated levels on most of his numbers - total cholesterol was at 251 mg/dl and TG was at 558 mg/dl; LDL is TNP due to his TG level being >400 mg/dl Have advised patient that we will wait and see how his repeat numbers come out and we will check back with him with further instructions or recommendations then Continue Fenofibrate 134 mg QD for now Will recheck his labs and fasting lipids again in 6 months for follow up (3) Benign essential hypertension: Code(s): I10 - Essential (primary) hypertension Plan: Reinforced low sodium diet Used to take HCTZ 25 mg QD in the past but self-discontinued this a few years ago BP has been well-controlled so far on no meds for the past couple of years but he is currently on Doxazosin 12 mg Q HS, which also has an effect on one's blood pressure Will continue to monitor his BP regularly for now (4) Vitamin D deficiency: Code(s): E55.9 - Vitamin D deficiency, unspecified Plan: Continue Vitamin D3 2000 units QD Will recheck his Vitamin D level in 6 months for follow up (5) Primary osteoarthritis of left knee: Code(s): M17.12 - Unilateral primary osteoarthritis, left knee Plan: Follow up with [facility] as scheduled; gets cortisone injections into his knee every 3 to 4 months as needed (6) Benign prostatic hyperplasia with lower urinary tract symptoms: Code(s): N40.1 - Benign prostatic hyperplasia with lower urinary tract symptoms Qualifiers: Lower urinary tract symptom detail: urinary frequency Qualified Code(s): N40.1 - Benign prostatic hyperplasia with lower urinary tract symptoms; R35.0 - Frequency of micturition Plan: Used to see Dr. Chu and was started on Doxazosin and Finasteride and advised that he will be contacted for prostate Bx but states that he never received any call back Self-discontinued his Rx a few months ago when his Rx ran out - did not refill them as he was never contacted back He is currently back on Doxazosin 12 mg Q HS He requested for a referral to [facility] in [place] instead as his goes there as a patient - states that he was then informed by them that he had an outstanding bill with them for years and that he has to settle his bill first before that will see him States that he paid off his bill in full and is now waiting to hear back from them for an appointment (7) Alcohol use: Code(s): Z78.9 - Other specified health status Plan: Have counseled patient again on his alcohol use and recommended to cut back on his drinking Plan Follow up in 6 months Orders: Orders Comprehensive [place]. Panel Fast 6 Months E78.00 - Pure hypercholesterolemia, unspecified TSH reflex Free T4 6 Months E78.00 - Pure hypercholesterolemia, unspecified UA CC w/rflx Micro + Cult 6 Months R30.0 - Dysuria Complete Blood Count Auto Diff 6 Months D64.9 - Anemia, unspecified Lipid Panel 6 Months E78.00 - Pure hypercholesterolemia, unspecified Vitamin D 25-OH Total 6 Months E55.9 - Vitamin D deficiency, unspecified Medications: Refilled fenofibrate micronized 134 mg PO DAILY 90 caps 1RF ferrous sulfate (Feosol) 325 mg PO DAILY 90 days 90 tabs 1RF Coding Level of Care Code Est Pt Level 4 (22490) Diagnoses Beta thalassemia trait D56.3 Pure hypercholesterolemia E78.00 Benign essential hypertension I10 Vitamin D deficiency E55.9 Primary osteoarthritis of left knee M17.12 Benign prostatic hyperplasia with urinary frequency N40.1; R35.0 Lower urinary tract symptom detail: urinary frequency Alcohol use Z78.9
== END 2023-07-23 11:20 | disposition home or self-care (01) ==
PROVIDERS: PCP Internal Medicine; Visit Provider Internal Medicine
DX: D56.3 Thalassemia minor (principal); E78.00 Pure hypercholesterolemia, unspecified; I10 Essential (primary) hypertension; E55.9 Vitamin D deficiency, unspecified; M17.12 Unilateral primary osteoarthritis, left knee; N40.1 Benign prostatic hyperplasia with lower urinary tract symptoms; R35.0 Frequency of micturition; Z78.9 Other specified health status
CPT/HCPCS: 99214

== ENCOUNTER 2023-08-30 09:25 | Emergency (ER) | payer MEDICARE, OTHER, SELFPAY ==
[2023-08-30 09:29] VITALS: BP 145/97; PULSE 98; RESP 16; TEMP 37.1; O2SAT 96; BMI 23.7
--- NOTE | 2023-08-30 10:06 | ED.DENTAL ---
HPI - Dental/Oral General Chief complaint: Dental/Oral Stated complaint: abscess Time Seen by Provider: 08/30/23 09:45 Source: patient, family and EMS Mode of arrival: EMS Limitations: no limitations History of Present Illness ED Provider: Minerva Claudio PA-C HPI Narrative: 58-year-old male with history of alcohol use, osteoarthritis, HLD, HTN, BPH who presents to the ER from home for evaluation of left-sided dental pain and facial swelling that started yesterday. Patient reports he has a cracked tooth in the area and thinks that is where everything started from. He took tylenol as last night with improvement. This morning he woke up with swelling on the left side of his face that he feels as an abscess. Denies history of abscess in the past. Denies any drainage, difficulty opening his mouth or chewing. No fevers or chills. MD Complaint: tooth pain Location: Tooth # (22) Onset (ago): day(s) (1) Duration: worsening Severity: moderate Severity scale (1-10): 6 Relieving factors: other (tylenol) Context: history of dental caries and poor dental care Treatment prior to arrival: oral analgesic Related Data Previous Rx's ?Medication ?Instructions ?Recorded cholecalciferol (vitamin D3) 50 50 mcg PO DAILY 90 days #90 caps 03/20/23 mcg (2,000 unit) capsule fenofibrate micronized 134 mg 134 mg PO DAILY #90 caps 07/23/23 capsule ferrous sulfate 325 mg (65 mg 325 mg PO DAILY 90 days #90 tabs 07/23/23 iron) tablet (Feosol) doxazosin 4 mg tablet 12 mg (3 x 4 mg) PO BEDTIME 90 07/27/23 days #270 tabs amoxicillin 875 mg-potassium 1 tab PO BID #20 tabs 08/30/23 clavulanate 125 mg tablet naproxen 500 mg tablet 500 mg PO BID PRN pain #20 tabs 08/30/23 tramadol 50 mg tablet 50 mg PO BID PRN severe pain 08/30/23 (scale score 7-10) #7 tabs Allergies Allergy/AdvReac Type Severity Reaction Status Date / Time No Known Allergies Allergy Verified 08/30/23 09:30 Review of Systems Review of Systems: Yes all other systems are reviewed and are negative PMFSH Past Medical History Medical History (Updated 08/30/23 @ 10:17 by CATRACHITA Jimenez) Beta thalassemia trait Mixed hyperlipidemia Elevated PSA, between 10 and less than 20 ng/ml Vitamin D deficiency Benign prostatic hyperplasia with lower urinary tract symptoms Pure hypercholesterolemia Benign essential hypertension Surgical History Hx of colonoscopy History of hernia repair (~2002) Family History Family History Sister Diabetes mellitus Social History Social History Housing: House Alcohol intake: current Alcohol intake frequency: a few times a week Alcohol type: beer Patient Tobacco Use Status: Former Tobacco user Tobacco use type: Cigarette e-Cigarette/Vaping Use: Never Used Second Hand Smoke Exposure: No Advance Directives: No Advance Directives Information Provided: No Do you have a plan to hurt others: No Plan service: Yes Current occupational status: retired Cognitive needs: No Hearing needs: No Vision needs: No Physical Exam Vital Signs: Vital Signs: Last Vital Signs Temp 99 F 08/30/23 10:28 Pulse 80 08/30/23 10:28 Resp 16 08/30/23 10:28 BP 132/92 H 08/30/23 10:28 Pulse Ox 97 08/30/23 10:28 O2 Del Method Room Air 08/30/23 10:28 BMI result Body Mass Index 23.7 Appearance: Alert. Oriented X3. No acute distress. Head/face: normocephalic, atraumatic. Left mandible with mild swelling centrally without any overlying erythema, mild warmth noted Eyes: Pupils equal, round and reactive to light. ENT: Normal inspection of the ears and nose. The left lower lip with some mild swelling. Poor dentition. Multiple broken and cracked teeth. Left lower incisor is broken with associated gingival tenderness, no palpable area of fluctuation or induration. Pharynx normal. No tonsillar swelling or exudate. Neck: Normal inspection. Neck supple. No swelling. Normal range of motion. CVS: Normal heart rate and rhythm. Pulses normal. Respiratory: No respiratory distress. Breath sounds normal. Skin: Skin warm and dry. Normal skin color. Normal skin turgor. No rashes. Extremities: No lower extremity edema. No joint swelling. Neuro/psych: Oriented X 3. Grossly normal, nonfocal Medications Administered Discontinued Medications Generic Name Dose Route Start Last Admin Trade Name Mynor PRN Reason Stop Dose Admin Acetaminophen 975 mg 08/30/23 10:15 08/30/23 10:28 Acetaminophen 325 Mg Tablet PO 08/30/23 10:16 975 mg ONCE ONE Administration Amoxicillin/Clavulanate Potassium 875 mg 08/30/23 10:15 08/30/23 10:28 Amoxicillin/Potassium Clav 875 Mg Tablet PO 08/30/23 10:16 875 mg ONCE ONE Administration Naproxen 500 mg 08/30/23 10:15 08/30/23 10:29 Naproxen 500 Mg Tablet PO 08/30/23 10:16 500 mg ONCE ONE Administration Medical Decision Making Medical Decision Making MDM Narrative: 68 yo male presents to the ER for evaluation of a left dental abscess that started yesterday. He is not diabetic. No history of abscess in the past. On arrival to the ER today he has some left mandibular swelling. No trismus present no anterior neck swelling present. He has a cracked incisor that appears to be infected. Unable to palpate a drainable abscess today. He is afebrile hemodynamically stable and nontoxic appearing. Will start the patient on oral antibiotics and pain control. He was given as list of emergent dentist in the area, he does not have any dental care at this time. We discussed strict return precautions and he expressed understanding. Stable for discharge with close outpatient follow-up, low threshold to return if worsening. Differential Diagnosis Differential Diagnoses: The differential diagnosis associated with the presentation includes Dental abscess, toothache, fractured tooth, Renato's angina Tests considered The following testing was considered but not selected: Considered CT scan of the facial bones to assess for severity of abscess but this was deferred today Prescription Management I considered prescription management with: Pain Medication and Antibiotic Chronic Conditions Patient?s care impacted by: Other (Poor dentition) Social Determinants Patient?s care significantly limited by Social Determinants of Health including: Other Social Determinant of Health (No oral hygiene or dental care) Critical Care Time Critical Care Time Critical Care Time: No Discharge Plan Discharge Clinical Impression: Dental abscess Patient Disposition: Home, Self-Care Instructions: Toothache (ED) Additional Instructions: Take the prescribed antibiotics as directed, complete the entire course and do not miss any doses Call the list below to arrange urgent dental follow up If you develop new or worsening symptoms call 911 or come back to the ER for further evaluation. Call or visit any of the clinics below to establish with a dentist: [facility] [address] [place] [address] [facility] [address] [place] [address] [facility] [address] [facility], [address] [address] [place] [address] [facility] [address] [facility] [address] [place] [address] [place] [address] [place] [address] Prescriptions: New amoxicillin-pot clavulanate 875-125 mg tablet 1 tab PO BID Qty: 20 0RF naproxen 500 mg tablet 500 mg PO BID PRN (Reason: pain) Qty: 20 0RF tramadol 50 mg tablet 50 mg PO BID PRN (Reason: severe pain (scale score 7-10)) Qty: 7 0RF No Action doxazosin 4 mg tablet 12 mg PO BEDTIME 90 Days Qty: 270 0RF fenofibrate micronized 134 mg capsule 134 mg PO DAILY Qty: 90 1RF ferrous sulfate [Feosol] 325 mg (65 mg iron) tablet 325 mg PO DAILY 90 Days Qty: 90 1RF cholecalciferol (vitamin D3) 50 mcg (2,000 unit) capsule 50 mcg PO DAILY 90 Days Qty: 90 3RF Referrals: Teddy Aguila MD [Primary Care Provider] - Discharge Date/Time: 08/30/23 10:33 Print Language: Irish
[2023-08-30 10:28] VITALS: BP 132/92; PULSE 80; RESP 16; TEMP 37.2; O2SAT 97
[2023-08-30] MEDS: Amoxicillin/Potassium Clav 875 MG TABLET PO (10:28)
[2023-08-30] MEDS: Acetaminophen 325 MG TABLET 975 MG PO (10:28)
[2023-08-30] MEDS: NaPROXEN 500 MG TABLET PO (10:29)
--- NOTE | 2023-08-30 13:55 | MHC.CM.ED ---
Received consult for assessment of d/c needs: pt had d/c'd to home prior to CM visit. Call placed to pt who had returned to home. Pt states he wanted a list of dentists he could follow up with as he does not have dental insurance or a current dental provider. Pt states he no longer needs a list and will follow up with a dentist on 08/30. No other concerns reported.
== END 2023-08-30 10:33 | disposition home or self-care (01) ==
PROVIDERS: Emergency Provider Emergency Medicine; PCP Internal Medicine
DX: K04.7 Periapical abscess without sinus (principal)
CPT/HCPCS: 99283

== ENCOUNTER 2024-01-23 09:11 | Outpatient (REF) | payer MEDICARE, OTHER, SELFPAY ==
[2024-01-23 09:27] LABS: MANUAL DIFF FLAG NO
[2024-01-23 10:45] LABS: Basophils Percent Auto 0.9 % (0-2); Eosinophils Absolute Auto 0.3 X10*3/uL (0.0-0.4); Eosinophils Percent Auto 10.1 % (0-4); Hematocrit 38.3 % (42.0-52.0); Hemoglobin 12.1 g/dl (14.0-18.0); Imm Gran Abs Auto 0.01 X10*3/uL (0.00-0.03); Imm Gran Pct Auto 0.3 % (0.0-0.4); Mean Corpuscular HGB Conc 31.6 g/dl (31.0-36.0); Mean Corpuscular Hemoglobin 23.9 pg (27.0-33.0); Mean Corpuscular Volume 75.7 fL (80.0-98.0); Mean Platelet Volume 12.2 fL (9.4-12.4); Monocytes Absolute Auto 0.5 X10*3/uL (0.1-1.2); Monocytes Percent Auto 14.2 % (2-11); Neutrophils Absolute Auto 1.4 x10*3/uL (2.0-8.3); Neutrophils Percent Auto 44.5 % (45-73); Platelet Count 175 X10*3/uL (160-400); Red Blood Count 5.06 X10*6/uL (4.60-5.80); Red Cell Distribution Width 15.6 % (11.0-16.0); White Blood Count 3.2 X10*3/uL (4.8-10.8)
[2024-01-23 11:00] LABS: Appearance Urine Clear; Color Urine Yellow; Glucose Urine UA Negative (Negative); Leukocyte Esterase Urine Negative (Negative); Nitrite Urine Negative (Negative); Specific Gravity - Urine 1.015 (1.005-1.025); Urine Blood Negative (Negative); Urine Ketones Negative (Negative); Urine Protein Negative (Neg-Trace)
[2024-01-23 11:38] LABS: Alanine Aminotransferase 27 U/L (0-40); Albumin Level 3.8 g/dL (3.5-5.0); Alkaline Phosphatase 93 U/L (39-117); Anion Gap 13 (12-20); Aspartate Amino Transferase 34 U/L (5-37); Bilirubin Total 0.8 mg/dL (0.0-1.0); Blood Urea Nitrogen 11 mg/dL (9-16); Calcium 9.2 mg/dL (8.4-10.2); Carbon Dioxide 25 mmol/L (22-29); Chloride 107 mmol/L (96-108); Cholesterol 223 mg/dL (<200); Estimated Glomerular Filt Rate > 60; Glucose Fasting 83 mg/dL (60-99); HDL Cholesterol 44 mg/dL (>40); Iron 83 mcg/dL (45-160); Percent Iron Saturation 34 % (15-50); Potassium 3.9 mmol/L (3.3-5.1); Sodium 141 mmol/L (135-145); Total Iron Binding Capacity 241 mcg/dL (228-428); Total Protein 7.3 g/dL (6.5-8.0); Triglycerides 402 mg/dL (<150); Unsaturated Iron Binding 158 ug/dL
[2024-01-23 11:44] LABS: TSH reflex Free T4 1.63 uIU/mL (0.32-4.0)
[2024-01-23 11:56] LABS: Folate 13.9 ng/mL (> or = 4.0); Vitamin B12 314 pg/mL (200-900)
== END 2024-01-23 09:12 | disposition home or self-care (01) ==
LOC: HO.LAB 09:11
PROVIDERS: PCP Internal Medicine; Visit Provider Internal Medicine
DX: R30.0 Dysuria (principal); E78.00 Pure hypercholesterolemia, unspecified; E55.9 Vitamin D deficiency, unspecified; D64.9 Anemia, unspecified; D50.9 Iron deficiency anemia, unspecified; E53.8 Deficiency of other specified B group vitamins
CPT/HCPCS: 36415; 80053; 80061; 81003; 82306; 82607; 82746; 83540; 84443; 85025

== ENCOUNTER 2024-01-25 10:58 | Outpatient (AMB) | payer MEDICARE, OTHER, SELFPAY ==
[2024-01-25 11:03] VITALS: BP 122/78; PULSE 101; O2SAT 97; BMI 23.5
--- NOTE | 2024-01-25 11:03 | A.OFFPC_ITS ---
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 Accompanied by: Self / Same As Patient Allergies No Known Allergies Allergy (Verified 01/25/24 11:45) Medication List - Last Reconciled 01/25/24 by JI Whitman cholecalciferol (vitamin D3) 50 mcg PO DAILY 90 days doxazosin 12 mg (3 x 4 mg) PO BEDTIME 90 days fenofibrate micronized 134 mg PO DAILY ferrous sulfate (Feosol) 325 mg PO DAILY 90 days Tobacco use date assessed: 01/25/24 Fall risk assessment: No Falls in past year Last assessed Fall Risk: 01/25/24 Dental Screening Dental Screen Date: 01/25/24 Did you have a dental visit in the last 12 months?: Yes Did you have a dental problem in the last 6 months where you did not have access to dental care?: No Was dental information given to patient?: Patient has dentist HPI hyperlipidemia HPI Details Patient is a 68-year-old male with past medical history BPH, beta thalassemia trait, mixed hyperlipidemia, elevated GAMEMASTER between 10 and less than 20 ng/mL. The patient is following up today primarily for his hypercholesteremia and elevated triglycerides greater than 400. Patient reported that he has not been taking his fenofibrate. The patient also reported that he has not been taking his vitamin-D 50 mcg or is ferrous sulfate 325 mg. Per patient he feels fine he has not been feeling tired. He also reported that the iron tablet is leaving weird taste in his mouth and causing him to be constipated. The patient reported that he suspect that did at his cholesterol was high. He denies eating a lot of fat or greasy foods. However the patient reported that eats a lot of cheese. Is as reviewed in as hypercholesteremia to the amount of cheese pizza that he eats. The patient also reported that he has not followed up with Urology because it did not receive a phone call from them. He reports that he knows he has a standing referral order, so it isn't think that it needs in a referral he just has to call him. The patient reported that he is no longer taking naproxen 500 mg b.i.d. or tramadol 50 mg b.i.d. p.r.n. These medications were given to him when he had dental work done. [facility] Medical History Beta thalassemia trait Mixed hyperlipidemia Elevated PSA, between 10 and less than 20 ng/ml Vitamin D deficiency Benign prostatic hyperplasia with lower urinary tract symptoms Pure hypercholesterolemia Benign essential hypertension Surgical History Hx of colonoscopy History of hernia repair (~2002) Family History Sister Diabetes mellitus Social History Housing: House Alcohol intake: current Alcohol intake frequency: a few times a week Alcohol type: beer Patient Tobacco Use Status: Former Tobacco user Tobacco use type: Cigarette e-Cigarette/Vaping Use: Never Used Second Hand Smoke Exposure: No service: Yes Current occupational status: retired Cognitive needs: No Hearing needs: No Vision needs: No Questionnaire PHQ-9 Over the last 2 weeks, how often have you been bothered by any of the following problems? 1. Little interest or pleasure in doing things: not at all 2. Feeling down, depressed, or hopeless: not at all 3. Trouble falling or staying asleep, or sleeping too much: not at all 4. Feeling tired or having little energy: not at all 5. Poor appetite or overeating: not at all 6. Feeling bad about yourself - or that you are a failure or have let yourself or your family down: not at all 7. Trouble concentrating on things, such as reading the newspaper or watching television: not at all 8. Moving or speaking so slowly that other people could have noticed. Or the opposite - being so fidgety or restless that you have been moving around a lot more than usual: not at all 9. Thoughts that you would be better off or of hurting yourself in some way: not at all Total score: 0 Depression Screening Interpretation: Negative Depression Screening Done: Yes 50254 - PHQ-9 Billing: Yes Source: Developed by Drs. Eulogio Barros, Zelda Zavala, Macario Villeda and colleagues, with an educational valorie from [employer]. Thrive Questionnaire Date Thrive assessed: 01/25/24 I am a: Patient What is your living situation today?: I have a steady place to live Within the past 12 months, did the food you bought not last and you didn't have the money to get more?: Never true Within the past 12 months, did you worry whether your food would run out before you got money to buy more?: Never true Do you have trouble paying for medicines?: No Do you have trouble getting transportation to medical appointments?: No Do you have trouble paying your heating and electricity bill?: No Do you have trouble taking care of your child, family member or friend?: No Do you have trouble with day-to-day activities such as bathing, preparing meals, shopping, managing finances, etc.?: No Are you currently unemployed and looking for a job?: No Are you interested in more education?: No Please select the resources that you would like help with: None Currently or been in a relationship where the following occur: No concerns reported THRIVE Score: 0 AUDIT C Alcohol Use Questionnaire (AUDIT-C) 1. How often do you have a drink containing alcohol?: 4 or more times a week 2. How many drinks containing alcohol do you have on a typical day when you are drinking?: 10 or more 3. How often do you have six or more drinks on one occasion?: Weekly Total Score: 11 Score Reviewed/Action Taken: Yes EVENS-7 AMB Questionnaire EVENS-7 Date EVENS - 7 assessed: 01/25/24 Feeling nervous, anxious, or on edge: 0 = Not at all Not being able to stop or control worryin = Not at all Worrying too much about different things: 0 = Not at all Trouble relaxin = Not at all Being so restless that it is hard to sit still: 0 = Not at all Becoming easily annoyed or irritable: 0 = Not at all Feeling afraid as if something awful might happen: 0 = Not at all Total EVENS-7 score (0-4 normal; 5-9 mild; 10-14 moderate; 15-21 severe): 0 Source: Developed by Margarito Stronget B.W. Lucas, Macario Villeda and colleagues, with an educational valorie from [employer] EVENS-7 Assessment Billing EVENS-7 Assessment Tool: EVENS-7 Assessment 85734 Review of Systems Const Details: Const Denies chills, Denies fatigue, Denies fever(s), Denies headache(s) and Denies weakness ENT Denies dizziness and Denies headache(s) Card Denies chest pain, Denies lightheadedness, Denies dyspnea and Denies other (Palpitations) Resp Denies cough, Denies dyspnea, Denies wheezing and Denies other ( shortness of breath) GI Denies abdominal pain, Denies melena, Denies hematochezia, Denies change in bowel habits, Denies dyspepsia and Denies nausea Denies hematuria and Denies dysuria Musc Denies abnormal gait, Denies myalgias, Denies arthralgias, Denies numbness and Denies tingling Skin/Breast Denies rash, Denies unusual bruising and Denies wounds Neuro Denies abnormal gait, Denies dizziness, Denies headache(s), Denies memory loss, Denies numbness, Denies Sensory deficit (Neuro), Denies tingling and Denies weakness Psych Denies anxiety, Denies depression, Denies memory loss Endo Denies cold intolerance, Denies fatigue, Denies heat intolerance, Denies polydipsia and Denies polyuria Aller/Immun Denies wheezing Physical exam (Primary Care) Vital Signs: Last Vital Signs Pulse 101 H 01/25/24 11:03 BP 122/78 01/25/24 11:03 Pulse Ox 97 01/25/24 11:03 Oxygen Delivery Method Room Air 01/25/24 11:03 BMI result Body Mass Index 23.5 Tobacco/Smoking Status: Tobacco use Status Tobacco use date assessed 01/25/24 01/25/24 11:08 Patient Tobacco Use Status Former Tobacco user 01/25/24 11:08 Tobacco use type Cigarette 01/25/24 11:08 e-Cigarette/Vaping Use Never Used 01/25/24 11:08 PHQ-9: PHQ-9 Score PHQ-9: Total score 0 01/26/24 03:07 Depression Screening Interpretation: Negative Thrive Assessment: Date of Thrive Assessment Date Thrive assessed 01/25/24 01/25/24 11:08 Currently or been in a relationship where the following occur: No concerns reported Const Other: General: no acute distress and well developed Nutritional Appearance: well nourished Orientation/consciousness: patient oriented x3 [facility] Head: Yes normocephalic and Yes atraumatic Eyes General: appearance normal, both eyes and all related structures Pupils: Equal, round and reactive pupils present EOM: EOMs intact bilaterally Resp Effort & Inspection: normal respiratory effort Auscultation: clear to auscultation bilaterally Cardio Rate: regular rate Rhythm: regular rhythm Heart sounds: S1 normal heart sound present, S2 normal heart sound present, no gallops, no murmurs and no rubs GI Palpation (GI): No Abdominal aortic bruit present, Soft to palpation, nontender, No hepatosplenomegaly present and No Rebound tenderness present Auscultation: normal bowel sounds General: Yes no CVA tenderness Back/Spine/Pelvis Back: no CVA tenderness Cervical Spine: cervical ROM normal and No Cervical spine tenderness Thoracic/Lumbar Spine: thoraco-lumbar ROM normal, No pain with thoraco-lumbar ROM, No thoracic spinal tenderness and No lumbar spinal tenderness Extrem General: Yes normal to inspection, No edema and No calf tenderness Skin General: warm and dry. Normal skin color. Normal skin turgor Lesions: no lesions Rashes: no rashes Trauma: no lacerations or abrasions Wounds: no wounds Nails: normal Neuro General: patient oriented x3, gait normal and no focal neuro deficit Cranial nerves: Yes Equal, round and reactive pupils present Cognition (Neuro): normal cognition Gait exam (Neuro): Normal gait present Sensory Exam: No Sensory deficit (Neuro) Psych Appearance: grossly normal Affect: normal affect Attitude: cooperative Thought process: Normal thought process present Results Reviewed Results Reviewed: Laboratory Tests 01/23/24 01/23/24 09:25 09:26 WBC 3.2 L RBC 5.06 Hgb 12.1 L Hct 38.3 L MCV 75.7 L MCH 23.9 L RDW 15.6 Plt Count 175 Neut % (Auto) 44.5 L Carter % (Auto) 14.2 H Eos % (Auto) 10.1 H Sodium 141 Potassium 3.9 Chloride 107 Carbon Dioxide 25 BUN 11 Creatinine 0.70 Estimated GFR > 60 Iron 83 TIBC 241 % Saturation 34 Unsat Iron Binding 158 AST 34 ALT 27 Alkaline Phosphatase 93 Triglycerides 402 H Cholesterol 223 H Vitamin B12 314 25-OH Vitamin D Total 16.0 L Folate 13.9 TSH 1.63 Urine Color Yellow Urine Appearance Clear Ur Specific [place] 1.015 Urine Protein Negative Urine Blood Negative Urine Nitrite Negative Ur Leukocyte Esterase Negative Coding Level of Care Code Est Pt Level 4 (40424) Diagnoses Mixed hyperlipidemia E78.2 Chronic anemia D64.9 Beta thalassemia trait D56.3 Elevated PSA, between 10 and less than 20 ng/ml R97.20 Vitamin D deficiency E55.9 Benign prostatic hyperplasia with urinary frequency N40.1; R35.0 Lower urinary tract symptom detail: urinary frequency Pure hypercholesterolemia E78.00 Benign essential hypertension I10 Additional Codes EVENS-7 Assessment Billing - EVENS-7 Assessment Tool: EVENS-7 Assessment 04300 ([id number]) PHQ-9 - 27985 - PHQ-9 Billing: Yes ([id number]) Assessment & Plan Assessment & Plan (1) Mixed hyperlipidemia: Code(s): E78.2 - Mixed hyperlipidemia Category: Medical Plan: The was ordered fenofibrate micronized 134 mg daily. Patient reported that he has not been taking this medication. Patient was educated on the risk of stroke/heart attack if he does not get his cholesterol under control. The patient agrees to take the medication. Fenofibrate was refilled Diet/exercise discussed in detail Encouraged to exercise for at least 30 minutes a day/5 days a week Healthy eating discussed. Encouraged to eat fruits/vegetables, protein- fish/baked chicken, and to avoid salty/fried foods, sweets, caffeine and carbohydrates. Encouraged to increase water intake 6-8 glasses a day Repeat labs were ordered, patient to follow-up in 3 months. (2) Chronic anemia: Code(s): D64.9 - Anemia, unspecified Category: Medical Plan: Hemoglobin 12.1/hematocrit 38.3. The patient was ordered ferrous sulfate 325 mg daily. Patient reported that he has not been taking his medication. His iron studies are within normal limits, TIBC on the low end of normal 241. Patient reported that iron tablets in the past left a bad taste in his mouth and cause him to be constipated. Iron studies were reordered for the patient follow-up appointment in 3 months. We will advise then/lab values. (3) Beta thalassemia trait: Code(s): D56.3 - Thalassemia minor Category: Medical Plan: Same as above. (4) Elevated PSA, between 10 and less than 20 ng/ml: Code(s): R97.20 - Elevated prostate specific antigen [PSA] Category: Medical Plan: Patient is a taken doxazosin 12 mg at bedtime. Patient reported that his urinary symptoms almost completely resolved. He gets up to the bathroom to urinate at night infrequently. The patient was supposed to follow up with [facility]rology. His PSA done on02/07/22 was 11.71. PSA lab ordered with 3 month follow-up. The patient was encouraged to reach out to [facility]. Referral was placed on previous visit. The contact information for [facility] was given to patient. (5) Vitamin D deficiency: Code(s): E55.9 - Vitamin D deficiency, unspecified Category: Medical Plan: Vitamin-D level 16 L, the patient has not been taking his vitamin-D 50 mcg daily. Patient denies feeling tired at this time. The patient was encouraged to resume vitamin-D 50 mcg daily. Follow-up labs ordered for 3 month appointment. (6) Benign prostatic hyperplasia with lower urinary tract symptoms: Code(s): N40.1 - Benign prostatic hyperplasia with lower urinary tract symptoms Category: Medical Qualifiers: Lower urinary tract symptom detail: urinary frequency Qualified Code(s): N40.1 - Benign prostatic hyperplasia with lower urinary tract symptoms; R35.0 - Frequency of micturition Plan: The patient continued to take doxazosin 12 mg with improve of urinary symptoms. PSA was ordered for three-month follow-up. And the patient was encouraged to follow up with urology. (7) Pure hypercholesterolemia: Code(s): E78.00 - Pure hypercholesterolemia, unspecified Category: Medical Plan: The was ordered fenofibrate micronized 134 mg daily. Patient reported that he has not been taking this medication. Patient was educated on the risk of stroke/heart attack if he does not get his cholesterol under control. The patient agrees to take the medication. Fenofibrate was refilled Diet/exercise discussed in detail Encouraged to exercise for at least 30 minutes a day/5 days a week Healthy eating discussed. Encouraged to eat fruits/vegetables, protein- fish/baked chicken, and to avoid salty/fried foods, sweets, caffeine and carbohydrates. Encouraged to increase water intake 6-8 glasses a day Repeat labs were ordered, patient to follow-up in 3 months. (8) Benign essential hypertension: Code(s): I10 - Essential (primary) hypertension Category: Medical Plan: Blood pressure on last visit has been within normal limits. Encouraged DASH diet. Adequate hydration encouraged. At least 68 glasses per day. Reinforce the risk of alcohol and caffeine. Plan Follow up in 3 months Orders: Orders Complete Blood Count Auto Diff 3 Months D56.3 - Thalassemia minor, D64.9 - Anemia, unspecified Comprehensive Weir. Panel Fast 3 Months E78.00 - Pure hypercholesterolemia, unspecified, E78.2 - Mixed hyperlipidemia, I10 - Essential (primary) hypertension UA CC w/rflx Micro + Cult 3 Months N40.1 - Benign prostatic hyperplasia with lower urinary tract symptoms, R35.0 - Frequency of micturition Vitamin D 25-OH Total 3 Months E55.9 - Vitamin D deficiency, unspecified IRON PROFILE 3 Months D64.9 - Anemia, unspecified Lipid Panel 3 Months E78.00 - Pure hypercholesterolemia, unspecified, E78.2 - Mixed hyperlipidemia PSA,Total (Free>4and<10) 3 Months N40.1 - Benign prostatic hyperplasia with lower urinary tract symptoms, R35.0 - Frequency of micturition Medications: Refilled cholecalciferol (vitamin D3) 50 mcg PO DAILY 90 caps 3RF 90 days E55.9 - Vitamin D deficiency, unspecified fenofibrate micronized 134 mg PO DAILY 90 caps 1RF doxazosin 12 mg (3 x 4 mg) PO BEDTIME 270 tabs 0RF 90 days N40.1 - Benign prostatic hyperplasia with lower urinary tract symptoms, R35.0 - Frequency of micturition
== END 2024-01-25 11:55 | disposition home or self-care (01) ==
PROVIDERS: PCP Internal Medicine
DX: E78.2 Mixed hyperlipidemia (principal); D64.9 Anemia, unspecified; D56.3 Thalassemia minor; R97.20 Elevated prostate specific antigen [PSA]; E55.9 Vitamin D deficiency, unspecified; N40.1 Benign prostatic hyperplasia with lower urinary tract symptoms; R35.0 Frequency of micturition; E78.00 Pure hypercholesterolemia, unspecified; I10 Essential (primary) hypertension

== ENCOUNTER → 2024-01-25 10:58 | Outpatient (BNVA) | payer MEDICARE, OTHER, SELFPAY | PROVIDERS: PCP Internal Medicine | DX: E78.2 Mixed hyperlipidemia (principal); D64.9 Anemia, unspecified; D56.3 Thalassemia minor; R97.20 Elevated prostate specific antigen [PSA]; E55.9 Vitamin D deficiency, unspecified; N40.1 Benign prostatic hyperplasia with lower urinary tract symptoms; R35.0 Frequency of micturition; E78.00 Pure hypercholesterolemia, unspecified; I10 Essential (primary) hypertension | CPT/HCPCS: 96127; 99212 ==

== ENCOUNTER 2024-05-02 12:34 | Outpatient (AMB) | payer MEDICARE, OTHER, SELFPAY ==
[2024-05-02 12:36] VITALS: BP 100/78; PULSE 118; O2SAT 97; BMI 23.4
--- NOTE | 2024-05-02 12:36 | MHC.PC.OV ---
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: No Accompanied by: Self / Same As Patient Allergies No Known Allergies Allergy (Verified 05/02/24 12:58) Medication List - Last Reconciled 05/02/24 by Teddy Aguila MD cholecalciferol (vitamin D3) 50 mcg PO DAILY 90 days doxazosin 12 mg (3 x 4 mg) PO BEDTIME 90 days fenofibrate micronized 134 mg PO DAILY ferrous sulfate (Feosol) 325 mg PO DAILY 90 days Tobacco use date assessed: 05/02/24 Fall risk assessment: No Falls in past year Last assessed Fall Risk: 05/02/24 Dental Screening Dental Screen Date: 05/02/24 Did you have a dental visit in the last 12 months?: Yes Did you have a dental problem in the last 6 months where you did not have access to dental care?: No Was dental information given to patient?: Patient has dentist HPI 3 month f/u HPI Details Patient comes in today for his follow up visit States that he feels okay He denies any headaches or dizziness Denies any chest pains, no SOB No nausea/vomiting, no abdominal pain No change in bowel habits noted He was not able to get his follow up labs done prior to his appointment today - states that he just forgot about them PFSH Medical History Beta thalassemia trait Mixed hyperlipidemia Elevated PSA, between 10 and less than 20 ng/ml Vitamin D deficiency Benign prostatic hyperplasia with lower urinary tract symptoms Pure hypercholesterolemia Benign essential hypertension Surgical History Hx of colonoscopy History of hernia repair (~2002) Family History Sister Diabetes mellitus Social History Housing: House Alcohol intake: current Alcohol intake frequency: a few times a week Alcohol type: beer Patient Tobacco Use Status: Former Tobacco user Tobacco use type: Cigarette e-Cigarette/Vaping Use: Never Used Second Hand Smoke Exposure: No service: Yes Current occupational status: retired Cognitive needs: No Hearing needs: No Vision needs: No Questionnaire PHQ-9 Over the last 2 weeks, how often have you been bothered by any of the following problems? 1. Little interest or pleasure in doing things: not at all 2. Feeling down, depressed, or hopeless: not at all 3. Trouble falling or staying asleep, or sleeping too much: not at all 4. Feeling tired or having little energy: not at all 5. Poor appetite or overeating: not at all 6. Feeling bad about yourself - or that you are a failure or have let yourself or your family down: not at all 7. Trouble concentrating on things, such as reading the newspaper or watching television: not at all 8. Moving or speaking so slowly that other people could have noticed. Or the opposite - being so fidgety or restless that you have been moving around a lot more than usual: not at all 9. Thoughts that you would be better off or of hurting yourself in some way: not at all Total score: 0 Depression Screening Interpretation: Negative Depression Screening Done: Yes 87011 - PHQ-9 Billing: Yes Source: Developed by Drs. Eulogio Barros, Zelda Zavala, Macario Villeda and colleagues, with an educational valorie from [employer]. Thrive Questionnaire Date Thrive assessed: 05/02/24 I am a: Patient What is your living situation today?: I have a steady place to live Within the past 12 months, did the food you bought not last and you didn't have the money to get more?: Never true Within the past 12 months, did you worry whether your food would run out before you got money to buy more?: Never true Do you have trouble paying for medicines?: No Do you have trouble getting transportation to medical appointments?: No Do you have trouble paying your heating and electricity bill?: No Do you have trouble taking care of your child, family member or friend?: No Do you have trouble with day-to-day activities such as bathing, preparing meals, shopping, managing finances, etc.?: No Are you currently unemployed and looking for a job?: No Are you interested in more education?: No Please select the resources that you would like help with: None Currently or been in a relationship where the following occur: No concerns reported THRIVE Score: 0 AUDIT C Alcohol Use Questionnaire (AUDIT-C) 1. How often do you have a drink containing alcohol?: Monthly or less 2. How many drinks containing alcohol do you have on a typical day when you are drinking?: 3 or 4 3. How often do you have six or more drinks on one occasion?: Less than monthly Total Score: 3 Score Reviewed/Action Taken: Yes EVENS-7 AMB Questionnaire EVENS-7 Date EVENS - 7 assessed: 05/02/24 Feeling nervous, anxious, or on edge: 0 = Not at all Not being able to stop or control worryin = Not at all Worrying too much about different things: 0 = Not at all Trouble relaxin = Not at all Being so restless that it is hard to sit still: 0 = Not at all Becoming easily annoyed or irritable: 0 = Not at all Feeling afraid as if something awful might happen: 0 = Not at all Total EVENS-7 score (0-4 normal; 5-9 mild; 10-14 moderate; 15-21 severe): 0 Source: Developed by Drs. Eulogio Barros, Zelda Zavala, Macario Villeda and colleagues, with an educational valorie from [employer]. EVENS-7 Assessment Billing EVENS-7 Assessment Tool: EVENS-7 Assessment 02952 Review of Systems Const Denies chills, Denies fatigue, Denies fever(s) and Denies headache(s) ENT Denies dysphagia, Denies dizziness, Denies otalgia, Denies headache(s), Denies neck pain, Denies odynophagia and Denies sore throat Card Denies chest pain, Denies palpitations and Denies dyspnea Resp Denies cough, Denies dyspnea and Denies wheezing GI Denies abdominal pain, Denies constipation, Denies dysphagia, Denies heartburn, Denies diarrhea, Denies nausea, Denies odynophagia and Denies vomiting Denies dysuria, Reports nocturia and Denies urinary frequency Musc Denies back pain, Reports arthralgias (recurrent, over the left knee) and Denies neck pain Skin/Breast Denies rash Neuro Denies dizziness and Denies headache(s) Endo Denies fatigue and Denies palpitations Aller/Immun Denies wheezing Physical exam (Primary Care) Vital Signs: Last Vital Signs Pulse 118 H 05/02/24 12:36 BP 100/78 05/02/24 12:36 Pulse Ox 97 05/02/24 12:36 Oxygen Delivery Method Room Air 05/02/24 12:36 BMI result Body Mass Index 23.4 Tobacco/Smoking Status: Tobacco use Status Tobacco use date assessed 05/02/24 05/02/24 12:39 Patient Tobacco Use Status Former Tobacco user 05/02/24 12:39 Tobacco use type Cigarette 05/02/24 12:39 e-Cigarette/Vaping Use Never Used 05/02/24 12:39 PHQ-9: PHQ-9 Score PHQ-9: Total score 0 05/02/24 12:39 Depression Screening Interpretation: Negative Thrive Assessment: Date of Thrive Assessment Date Thrive assessed 05/02/24 05/02/24 12:39 Currently or been in a relationship where the following occur: No concerns reported Const General: no acute distress and alert HENMT Ears: TM's normal bilaterally and EAC's normal Throat: Yes posterior oropharynx normal and Yes tonsils normal (no TP congestion) Neck Neck: Yes supple and No lymphadenopathy Thyroid: Thyroid normal Resp Auscultation: clear to auscultation bilaterally, no rales and no wheezes Cardio Rate: regular rate Rhythm: regular rhythm Heart sounds: no murmurs GI Palpation (GI): Soft to palpation and nontender Auscultation: normal bowel sounds General: Yes no CVA tenderness Back/Spine/Pelvis Back: no CVA tenderness Thoracic/Lumbar Spine: No lumbar spinal tenderness Skin Rashes: no rashes Extrem General: Yes no clubbing, cyanosis or edema Left lower extremity: knee Details: tenderness (mild) and crepitus Coding Level of Care Code Est Pt Level 4 (62557) Diagnoses Mixed hyperlipidemia E78.2 Benign essential hypertension I10 Beta thalassemia trait D56.3 Vitamin D deficiency E55.9 Primary osteoarthritis of left knee M17.12 Benign prostatic hyperplasia with urinary frequency N40.1; R35.0 Lower urinary tract symptom detail: urinary frequency Alcohol use Z78.9 Additional Codes EVENS-7 Assessment Billing - EVENS-7 Assessment Tool: EVENS-7 Assessment 49700 ([id number]) PHQ-9 - 38545 - PHQ-9 Billing: Yes ([id number]) Assessment & Plan Assessment & Plan (1) Mixed hyperlipidemia: Code(s): E78.2 - Mixed hyperlipidemia Category: Medical Plan: Patient was not able to get his follow up labs done prior to his appointment today His cholesterol numbers have improved from previous when they were last checked in January 2024, with his total cholesterol at 223 mg/dl (down from 251 mg/dl earlier last year) and serum triglyceride at 402 mg/dl (down from 558 mg/dl earlier last year) Reinforced low cholesterol diet Continue Fenofibrate 134 mg QD Will have patient recheck his labs and fasting lipids in 4 months for follow up (2) Benign essential hypertension: Code(s): I10 - Essential (primary) hypertension Category: Medical Plan: Reinforced low sodium diet He used to take HCTZ 25 mg QD in the past but self-discontinued this a few years ago BP has been well-controlled so far on NO meds for the past couple of years but he is currently on Doxazosin 12 mg Q HS, which also can lower his blood pressure He is instructed to continue monitoring his BP regularly for now (3) Beta thalassemia trait: Code(s): D56.3 - Thalassemia minor Category: Medical Plan: Patient has consistently presented with mild microcytic hypochromic anemia on his CBCs done over the past few years and numbers raised suspicion of a thalassemia trait Hgb electrophoresis done back in March 2023 revealed findings consistent with a beta thalassemia trait His vitamin B12 level came back normal He will have his iron level checked for completion of his work up when he goes and gets his follow up labs done in a few months As he is currently asymptomatic, no other intervention is necessary at this time (4) Vitamin D deficiency: Code(s): E55.9 - Vitamin D deficiency, unspecified Category: Medical Plan: Patient is advised that his Vitamin D level remained very low on his labs done back in January 2024 Continue Vitamin D3 2000 units QD (5) Primary osteoarthritis of left knee: Code(s): M17.12 - Unilateral primary osteoarthritis, left knee Category: Medical Plan: Follow up with [facility] as scheduled Patient gets cortisone injections into his knee every 3 to 4 months as needed to help with his symptoms (6) Benign prostatic hyperplasia with lower urinary tract symptoms: Code(s): N40.1 - Benign prostatic hyperplasia with lower urinary tract symptoms Category: Medical Qualifiers: Lower urinary tract symptom detail: urinary frequency Qualified Code(s): N40.1 - Benign prostatic hyperplasia with lower urinary tract symptoms; R35.0 - Frequency of micturition Plan: He used to see Dr. Chu and was started on Doxazosin and Finasteride and advised that he will be contacted for prostate Bx but states that he never received any call back He self-discontinued his medications last year when his Rx ran out and he did not refill them as no one reached out to him when he requested to have his Rx refilled He is currently back on Doxazosin 12 mg Q HS He requested for a referral to [facility] in [place] instead as his goes there as a patient - states that he was then informed by them that he had an outstanding bill with them for years and that he has to settle his bill first before they will see him States that he paid off his bill in full and is seeing them for urology follow up and management (7) Alcohol use: Code(s): Z78.9 - Other specified health status Category: Social Hx Plan: Have counseled patient again on his alcohol use and recommended to cut back on his drinking Plan Follow up in 4 months Orders: Orders Comprehensive [place]. Panel Fast 08/13/24 E78.00 - Pure hypercholesterolemia, unspecified, E78.2 - Mixed hyperlipidemia, I10 - Essential (primary) hypertension Complete Blood Count Auto Diff 08/13/24 D56.3 - Thalassemia minor, D64.9 - Anemia, unspecified PSA,Total (Free>4and<10) 08/13/24 N40.1 - Benign prostatic hyperplasia with lower urinary tract symptoms, R35.0 - Frequency of micturition Lipid Panel 08/13/24 E78.00 - Pure hypercholesterolemia, unspecified, E78.2 - Mixed hyperlipidemia IRON PROFILE 08/13/24 D64.9 - Anemia, unspecified UA CC w/rflx Micro + Cult 08/13/24 N40.1 - Benign prostatic hyperplasia with lower urinary tract symptoms, R35.0 - Frequency of micturition Vitamin D 25-OH Total 08/13/24 E55.9 - Vitamin D deficiency, unspecified
== END 2024-05-02 13:07 | disposition home or self-care (01) ==
LOC: HO.HMCH 12:34
PROVIDERS: PCP Internal Medicine; Visit Provider Internal Medicine
DX: E78.2 Mixed hyperlipidemia (principal); I10 Essential (primary) hypertension; D56.3 Thalassemia minor; E55.9 Vitamin D deficiency, unspecified; M17.12 Unilateral primary osteoarthritis, left knee; N40.1 Benign prostatic hyperplasia with lower urinary tract symptoms; R35.0 Frequency of micturition; Z78.9 Other specified health status

== ENCOUNTER → 2024-05-02 12:34 | Outpatient (BNVA) | payer MEDICARE, OTHER, SELFPAY | PROVIDERS: PCP Internal Medicine; Visit Provider Internal Medicine | DX: E78.2 Mixed hyperlipidemia (principal); I10 Essential (primary) hypertension; D56.3 Thalassemia minor; E55.9 Vitamin D deficiency, unspecified; M17.12 Unilateral primary osteoarthritis, left knee; N40.1 Benign prostatic hyperplasia with lower urinary tract symptoms; R35.0 Frequency of micturition; Z78.9 Other specified health status | CPT/HCPCS: 96127; 99212 ==

== ENCOUNTER 2024-09-05 10:36 | Outpatient (AMB) | payer MEDICARE, OTHER, SELFPAY ==
[2024-09-05 10:40] VITALS: BP 110/78; PULSE 85; O2SAT 98; BMI 22.3
--- NOTE | 2024-09-05 10:40 | MHC.PC.OV ---
Vital Signs 09/05/24 10:40 Height 5 ft 11 in Weight 160 lb 2 oz BMI 22.3 BP 110/78 Blood Pressure Location Lt brachial Position Sitting Pulse 85 Pulse Source Pulse Oximeter Pulse Oximetry (%) 98 Oxygen Delivery Method Room Air Intake Visit Reasons: hyperlipidemia, anemia Front Desk Specialist Required: No Accompanied by: Self / Same As Patient Allergies No Known Allergies Allergy (Verified 09/05/24 11:12) Medication List - Last Reconciled 09/05/24 by Teddy Aguila MD cholecalciferol (vitamin D3) 50 mcg PO DAILY 90 days doxazosin 12 mg (3 x 4 mg) PO BEDTIME 90 days fenofibrate micronized 134 mg PO DAILY ferrous sulfate (Feosol) 325 mg PO DAILY 90 days Tobacco use date assessed: 09/05/24 Fall risk assessment: 1 Fall in past year Last assessed Fall Risk: 09/05/24 Dental Screening Dental Screen Date: 09/05/24 Did you have a dental visit in the last 12 months?: No Did you have a dental problem in the last 6 months where you did not have access to dental care?: No Was dental information given to patient?: No HPI hyperlipidemia, anemia HPI Details Patient comes in today for his follow up visit States that he currently feels okay Relates that he fell off a golf cart about 1.5 months ago on 07/22/2024 and apparently hurt his right shoulder at the time Recalls that he could hardly move or raise his right arm for a while but he did not seek medical attention for his shoulder then States that his shoulder symptoms gradually improved over the next few weeks and he can now move his right arm (and shoulder) freely with little restrictions and does not think that he needs anything else for his shoulder at this time He denies any headaches or dizziness Denies any chest pains, no SOB No nausea/vomiting, no abdominal pain No change in bowel habits noted Needs his Vitamin D Rx refilled He was not able to get his follow up labs done prior to his appointment today - states that he has not yet eaten anything today and he can go and get these done as soon as he leaves the office today [facility] Medical History Beta thalassemia trait Mixed hyperlipidemia Elevated PSA, between 10 and less than 20 ng/ml Vitamin D deficiency Benign prostatic hyperplasia with lower urinary tract symptoms Pure hypercholesterolemia Benign essential hypertension Surgical History Hx of colonoscopy History of hernia repair (~2002) Family History Sister Diabetes mellitus Social History Housing: House Alcohol intake: current Alcohol intake frequency: a few times a week Alcohol type: beer Patient Tobacco Use Status: Former Tobacco user Tobacco use type: Cigarette e-Cigarette/Vaping Use: Never Used Second Hand Smoke Exposure: No service: Yes Current occupational status: retired Cognitive needs: No Hearing needs: No Vision needs: No Questionnaire PHQ-9 Over the last 2 weeks, how often have you been bothered by any of the following problems? 1. Little interest or pleasure in doing things: not at all 2. Feeling down, depressed, or hopeless: not at all 3. Trouble falling or staying asleep, or sleeping too much: not at all 4. Feeling tired or having little energy: not at all 5. Poor appetite or overeating: not at all 6. Feeling bad about yourself - or that you are a failure or have let yourself or your family down: not at all 7. Trouble concentrating on things, such as reading the newspaper or watching television: not at all 8. Moving or speaking so slowly that other people could have noticed. Or the opposite - being so fidgety or restless that you have been moving around a lot more than usual: not at all 9. Thoughts that you would be better off or of hurting yourself in some way: not at all Total score: 0 Depression Screening Interpretation: Negative Depression Screening Done: Yes 99425 - PHQ-9 Billing: Yes Source: Developed by Drs. Eulogio Barros, Zelda Zavala, Macario Villeda and colleagues, with an educational valorie from [employer]. Thrive Questionnaire Date Thrive assessed: 09/05/24 I am a: Patient What is your living situation today?: I have a steady place to live Within the past 12 months, did the food you bought not last and you didn't have the money to get more?: Never true Within the past 12 months, did you worry whether your food would run out before you got money to buy more?: Never true Do you have trouble paying for medicines?: No Do you have trouble getting transportation to medical appointments?: No Do you have trouble paying your heating and electricity bill?: No Do you have trouble taking care of your child, family member or friend?: No Do you have trouble with day-to-day activities such as bathing, preparing meals, shopping, managing finances, etc.?: No Are you currently unemployed and looking for a job?: No Are you interested in more education?: No Please select the resources that you would like help with: None Currently or been in a relationship where the following occur: No concerns reported THRIVE Score: 0 AUDIT C Alcohol Use Questionnaire (AUDIT-C) 1. How often do you have a drink containing alcohol?: 4 or more times a week 2. How many drinks containing alcohol do you have on a typical day when you are drinking?: 1 or 2 3. How often do you have six or more drinks on one occasion?: Never Total Score: 4 Score Reviewed/Action Taken: Yes EVENS-7 AMB Questionnaire EVENS-7 Date EVENS - 7 assessed: 09/05/24 Feeling nervous, anxious, or on edge: 0 = Not at all Not being able to stop or control worryin = Not at all Worrying too much about different things: 0 = Not at all Trouble relaxin = Not at all Being so restless that it is hard to sit still: 0 = Not at all Becoming easily annoyed or irritable: 0 = Not at all Feeling afraid as if something awful might happen: 0 = Not at all Total EVENS-7 score (0-4 normal; 5-9 mild; 10-14 moderate; 15-21 severe): 0 Source: Developed by Drs. Eulogio Barros, Zelda Zavala, Macario Villeda and colleagues, with an educational valorie from [employer]. Review of Systems Const Denies chills, Denies fatigue, Denies fever(s) and Denies headache(s) ENT Denies dysphagia, Denies dizziness, Denies otalgia, Denies headache(s), Denies neck pain, Denies odynophagia and Denies sore throat Card Denies chest pain, Denies palpitations and Denies dyspnea Resp Denies chest congestion, Denies cough and Denies dyspnea GI Denies abdominal pain, Denies constipation, Denies dysphagia, Denies heartburn, Denies diarrhea, Denies nausea, Denies odynophagia and Denies vomiting Denies difficulty urinating, Denies dysuria, Reports nocturia and Denies urinary frequency Musc Denies back pain, Reports arthralgias (recurrent, over the left knee - improved with cortisone injection recently) and Denies neck pain Skin/Breast Denies rash Neuro Denies dizziness and Denies headache(s) Endo Denies fatigue and Denies palpitations Physical exam (Primary Care) Vital Signs: Last Vital Signs Pulse 85 09/05/24 10:40 BP 110/78 09/05/24 10:40 Pulse Ox 98 09/05/24 10:40 Oxygen Delivery Method Room Air 09/05/24 10:40 BMI result Body Mass Index 22.3 Tobacco/Smoking Status: Tobacco use Status Tobacco use date assessed 09/05/24 09/05/24 10:47 Patient Tobacco Use Status Former Tobacco user 09/05/24 10:47 Tobacco use type Cigarette 09/05/24 10:47 e-Cigarette/Vaping Use Never Used 09/05/24 10:47 PHQ-9: PHQ-9 Score PHQ-9: Total score 0 09/05/24 10:47 Depression Screening Interpretation: Negative Thrive Assessment: Date of Thrive Assessment Date Thrive assessed 09/05/24 09/05/24 10:47 Currently or been in a relationship where the following occur: No concerns reported Const General: no acute distress and alert HENMT Ears: TM's normal bilaterally and EAC's normal Throat: Yes posterior oropharynx normal and Yes tonsils normal (no TP congestion) Neck Neck: Yes supple and No lymphadenopathy Thyroid: Thyroid normal Resp Auscultation: clear to auscultation bilaterally, no rales and no wheezes Cardio Rate: regular rate Rhythm: regular rhythm Heart sounds: no murmurs GI Palpation (GI): Soft to palpation and nontender Auscultation: normal bowel sounds General: Yes no CVA tenderness Back/Spine/Pelvis Back: no CVA tenderness Thoracic/Lumbar Spine: No lumbar spinal tenderness Skin Rashes: no rashes Extrem General: Yes no clubbing, cyanosis or edema Right upper extremity: shoulder/upper arm Details: normal ROM; no tenderness Left lower extremity: knee Details: tenderness (mild) and crepitus Coding Level of Care Code Est Pt Level 4 (25743) Diagnoses Mixed hyperlipidemia E78.2 Benign essential hypertension I10 Beta thalassemia trait D56.3 Vitamin D deficiency E55.9 Primary osteoarthritis of left knee M17.12 Sprain of right shoulder, unspecified shoulder sprain type, sequela S43.401S Encounter type: sequela Shoulder sprain type: unspecified sprain Benign prostatic hyperplasia with urinary frequency N40.1; R35.0 Lower urinary tract symptom detail: urinary frequency Alcohol use Z78.9 Additional Codes PHQ-9 - 03373 - PHQ-9 Billing: Yes ([id number]) Assessment & Plan Assessment & Plan (1) Mixed hyperlipidemia: Code(s): E78.2 - Mixed hyperlipidemia Category: Medical Plan: Patient was again not able to get his follow up labs done prior to his appointment today - states that he will go and get these done as soon as he leaves the office today His cholesterol numbers have improved from previous when they were last checked in January 2024, with his total cholesterol at 223 mg/dl (down from 251 mg/dl earlier last year) and serum triglyceride at 402 mg/dl (down from 558 mg/dl earlier last year) Reinforced low cholesterol diet Continue Fenofibrate 134 mg QD Will have patient recheck his labs and fasting lipids again in 6 months for follow up (2) Benign essential hypertension: Code(s): I10 - Essential (primary) hypertension Category: Medical Plan: Reinforced low sodium diet He used to take HCTZ 25 mg QD in the past but self-discontinued this a few years ago BP has been well-controlled so far on NO meds for the past couple of years but he is currently on Doxazosin 12 mg Q HS, which also can lower his blood pressure He is reminded to continue monitoring his BP regularly (3) Beta thalassemia trait: Code(s): D56.3 - Thalassemia minor Category: Medical Plan: Patient has consistently presented with mild microcytic hypochromic anemia on his CBCs done over the past few years and numbers raised suspicion of a thalassemia trait Hgb electrophoresis done back in March 2023 revealed findings consistent with a beta thalassemia trait His vitamin B12 level came back normal His iron levels also came back normal when checked in January 2024 As he is currently asymptomatic, no other intervention is necessary at this time and he is advised that he does not need to continue taking his oral iron supplements (4) Vitamin D deficiency: Code(s): E55.9 - Vitamin D deficiency, unspecified Category: Medical Plan: Patient is reminded that his Vitamin D level remained very low on his labs done back in January 2024 Continue Vitamin D3 2000 units QD Will recheck his Vitamin D level for follow up (5) Primary osteoarthritis of left knee: Code(s): M17.12 - Unilateral primary osteoarthritis, left knee Category: Medical Plan: Follow up with [facility] as scheduled Patient gets cortisone injections into his knee every 3 to 4 months as needed to help with his symptoms (6) Sprain of right shoulder: Code(s): S43.401A - Unspecified sprain of right shoulder joint, initial encounter Category: Medical Qualifiers: Encounter type: sequela Shoulder sprain type: unspecified sprain Qualified Code(s): S43.401S - Unspecified sprain of right shoulder joint, sequela Plan: Patient apparently strained / sprained his right shoulder in mid-July 2024 when he fell off a golf cart States that his shoulder was bothering him for a while but the pain and discomfort in his shoulder have mostly resolved at present and he currently has no limitations of ROM or pain in his shoulder so no further intervention is required at this time (7) Benign prostatic hyperplasia with lower urinary tract symptoms: Code(s): N40.1 - Benign prostatic hyperplasia with lower urinary tract symptoms Category: Medical Qualifiers: Lower urinary tract symptom detail: urinary frequency Qualified Code(s): N40.1 - Benign prostatic hyperplasia with lower urinary tract symptoms; R35.0 - Frequency of micturition Plan: He used to see Dr. Chu and was started on Doxazosin and Finasteride and advised that he will be contacted for prostate Bx but states that he never received any call back He self-discontinued his medications last year when his Rx ran out and he did not refill them as no one reached out to him when he requested to have his Rx refilled He is currently on Doxazosin 12 mg Q HS He requested for a referral to [facility] in [place] instead as his goes there as a patient - states that he was then informed by them that he had an outstanding bill with them for years and that he has to settle his bill first before they will see him States that he paid off his bill in full and is seeing them for urology follow up and management (8) Alcohol use: Code(s): Z78.9 - Other specified health status Category: Social Hx Plan: Have counseled patient again on his alcohol use and recommended to cut back on his drinking Plan Follow up in 6 months Orders: Orders Comprehensive [place]. Panel Fast 6 Months E78.00 - Pure hypercholesterolemia, unspecified Lipid Panel 6 Months E78.00 - Pure hypercholesterolemia, unspecified Medications: Refilled cholecalciferol (vitamin D3) 50 mcg PO DAILY 90 caps 3RF 90 days E55.9 - Vitamin D deficiency, unspecified
== END 2024-09-05 11:22 | disposition home or self-care (01) ==
LOC: HO.HMCH 10:37
PROVIDERS: PCP Internal Medicine; Visit Provider Internal Medicine
DX: E78.2 Mixed hyperlipidemia (principal); I10 Essential (primary) hypertension; D56.3 Thalassemia minor; E55.9 Vitamin D deficiency, unspecified; M17.12 Unilateral primary osteoarthritis, left knee; S43.401S Unspecified sprain of right shoulder joint, sequela; N40.1 Benign prostatic hyperplasia with lower urinary tract symptoms; R35.0 Frequency of micturition; Z78.9 Other specified health status

== ENCOUNTER 2024-09-05 10:36 | Outpatient (REF) | payer MEDICARE, OTHER, SELFPAY ==
[2024-09-05 11:48] LABS: MANUAL DIFF FLAG NO
[2024-09-05 12:17] LABS: Hematocrit 39.1 % (42.0-52.0); Hemoglobin 12.3 g/dl (14.0-18.0); Imm Gran Abs Auto 0.01 X10*3/uL (0.00-0.03); Imm Gran Pct Auto 0.3 % (0.0-0.4); Lymphocytes Absolute Auto 1.1 X10*3/uL (1.2-4.9); Mean Corpuscular HGB Conc 31.5 g/dl (31.0-36.0); Mean Corpuscular Hemoglobin 23.5 pg (27.0-33.0); Mean Corpuscular Volume 74.6 fL (80.0-98.0); NRBC Abs Auto 0.000 X10*3/uL (0.0-0.012); NRBC Pct Auto 0.0 /100WBC (0.0-0.2); Platelet Count 174 X10*3/uL (160-400); Red Blood Count 5.24 X10*6/uL (4.60-5.80); White Blood Count 3.6 X10*3/uL (4.8-10.8)
[2024-09-05 12:43] LABS: Appearance Urine Clear; Glucose Urine UA Negative (Negative); PH 5.5 (5.0-9.0); Specific Gravity - Urine 1.015 (1.005-1.025)
[2024-09-05 12:48] LABS: Alanine Aminotransferase 17 U/L (0-40); Albumin Level 4.1 g/dL (3.5-5.0); Alkaline Phosphatase 99 U/L (39-117); Anion Gap 14 (12-20); Aspartate Amino Transferase 30 U/L (5-37); Blood Urea Nitrogen 8 mg/dL (9-16); Calcium 9.2 mg/dL (8.4-10.2); Carbon Dioxide 24 mmol/L (22-29); Chloride 109 mmol/L (96-108); Cholesterol 228 mg/dL (<200); Estimated Glomerular Filt Rate > 60; HDL Cholesterol 58 mg/dL (>40); Iron 101 mcg/dL (45-160); Percent Iron Saturation 44 % (15-50); Potassium 4.3 mmol/L (3.3-5.1); Sodium 143 mmol/L (135-145); Total Iron Binding Capacity 228 mcg/dL (228-428); Total Protein 7.1 g/dL (6.5-8.0); Triglycerides 259 mg/dL (<150); Unsaturated Iron Binding 127 ug/dL
[2024-09-05 13:08] LABS: PSA,Total (Free>4and<10) 11.47 ng/mL (0.00-4.00)
== END 2024-09-05 10:37 | disposition home or self-care (01) ==
LOC: HO.LAB 10:36
PROVIDERS: PCP Internal Medicine; Visit Provider Internal Medicine
DX: E78.2 Mixed hyperlipidemia (principal); I10 Essential (primary) hypertension; D56.3 Thalassemia minor; E55.9 Vitamin D deficiency, unspecified; M17.12 Unilateral primary osteoarthritis, left knee; S43.401S Unspecified sprain of right shoulder joint, sequela; N40.1 Benign prostatic hyperplasia with lower urinary tract symptoms; R35.0 Frequency of micturition; Z78.9 Other specified health status; Z79.899 Other long term (current) drug therapy; Z13.31 Encounter for screening for depression; Z13.39 Encounter for screening examination for other mental health and behavioral disorders; R30.0 Dysuria; D64.9 Anemia, unspecified; Z12.5 Encounter for screening for malignant neoplasm of prostate
CPT/HCPCS: 36415; 80053; 80061; 81003; 82306; 83540; 84153; 85025; 96127; 99212